=== PATIENT | female | born 1965 | race Caucasian/White ===

== ENCOUNTER 2017-05-15 23:55 | Emergency (ER) | payer OTHER ==
[2017-05-15 23:55] VITALS: BMI 25.2
[2017-05-16 00:09] VITALS: BP 165/91; PULSE 91; RESP 18; TEMP 98.6; O2SAT 99
[2017-05-16] MEDS ORDERED: Oxycodone/Acetaminophen 5/325 mg Tab PO STA (00:19)
--- NOTE | 2017-05-16 00:23 | ED PDOC ---
Arrival/HPI - General Chief Complaint: Upper Extremity Problem/Injury Time Seen by Provider: 05/16/17 00:15 Historian: Patient - History of Present Illness Narrative History of Present Illness (Text): 05/16/17 00:15 Vania Fernández is a 51 year old female, whose past medical history includes hypertension, who presents to the emergency department complaining of left shoulder pain, worsened with movement, for 1 days. Patient denies any recent trauma/injury and notes she sleeps resting on her left side. Patient also denies any chest pain, shortness of breath, nausea, vomiting, headache, dizziness, or any other complaints. Time/Duration: Other (1 day) Symptom Onset: Gradual Symptom Course: Unchanged Activities at Onset: Rest, Light Modifying Factors (Text): Worsened with movement. Context: Home Past Medical History - Provider Review Nursing Documentation Reviewed: Yes - Infectious Disease Hx of Infectious Diseases: None - Cardiac Hx Cardiac Disorders: Yes Hx Hypertension: Yes - Pulmonary Hx Respiratory Disorders: No - Neurological Hx Neurological Disorder: No - HEENT Hx HEENT Disorder: No - Renal Hx Renal Disorder: No - Endocrine/Metabolic Hx Endocrine Disorders: No - Hematological/Oncological Hx Blood Disorders: No - Integumentary Hx Dermatological Disorder: No - Musculoskeletal/Rheumatological Hx Musculoskeletal Disorders: No - Gastrointestinal Hx Gastrointestinal Disorders: No - Genitourinary/Gynecological Hx Genitourinary Disorders: No - Psychiatric Hx Psychophysiologic Disorder: No Hx Substance Use: No - Surgical History Hx Hysterectomy: Yes - Anesthesia Hx Anesthesia: Yes Hx Anesthesia Reactions: No Hx Malignant Hyperthermia: No Family/Social History - Physician Review Nursing Documentation Reviewed: Yes Family/Social History: Unknown Family HX Smoking Status: Never Smoked Hx Alcohol Use: No Hx Substance Use: No Allergies/Home Meds Allergies/Adverse Reactions: Allergies amoxicillin trihydrate [From Augmentin] Allergy (Verified 05/16/17 00:15) RASH potassium clavulanate [From Augmentin] Allergy (Verified 05/16/17 00:15) RASH Home Medications: Home Meds Medication Instructions Recorded Confirmed Losartan/Hydrochlorothiazide 25 - 100 mg PO DAILY 05/16/17 05/16/17 [Losartan-Hctz 100-25 mg Tab] Metoprolol Succinate [Toprol Xl] 25 mg PO DAILY 05/16/17 05/16/17 Review of Systems - Physician Review All systems were reviewed & negative as marked: Yes - Review of Systems Constitutional: Normal. absent: Fevers Eyes: Normal ENT: Normal Respiratory: Normal. absent: SOB, Cough Cardiovascular: Normal. absent: Chest Pain Gastrointestinal: Normal. absent: Abdominal Pain, Diarrhea, Nausea, Vomiting Genitourinary Female: Normal. absent: Dysuria, Frequency, Hematuria, Urine Output Changes Musculoskeletal: Arthralgias (+left shoulder pain). absent: Back Pain, Neck Pain Skin: Normal. absent: Rash Neurological: Normal. absent: Headache, Dizziness Endocrine: Normal Hemo/Lymphatic: Normal Psychiatric: Normal Physical Exam Vital Signs Reviewed: Yes Vital Signs Temp Pulse Resp BP Pulse Ox 05/16/17 00:08 98.6 F 91 H 18 165/91 H 99 Temperature: Afebrile Blood Pressure: Hypertensive Pulse: Regular Respiratory Rate: Normal Appearance: Positive for: Well-Appearing, Non-Toxic, Comfortable Pain Distress: None Mental Status: Positive for: Alert and Oriented X 3 - Systems Exam Head: Present: Atraumatic, Normocephalic Pupils: Present: PERRL Extroacular Muscles: Present: EOMI Conjunctiva: Present: Normal Mouth: Present: Moist Mucous Membranes Neck: Present: Normal Range of Motion Respiratory/Chest: Present: Clear to Auscultation, Good Air Exchange. No: Respiratory Distress, Accessory Muscle Use Cardiovascular: Present: Regular Rate and Rhythm, Normal S1, S2. No: Murmurs Abdomen: Present: Normal Bowel Sounds. No: Tenderness, Distention, Peritoneal Signs Back: Present: Normal Inspection Upper Extremity: Present: NORMAL PULSES, Tenderness (Tenderness on palpation of left anterior shoulder, pain with left shoulder abduction), Neurovascularly Intact, Capillary Refill < 2s. No: Cyanosis, Edema, Swelling, Erythema, Temperature Abnormalties, Deformity Lower Extremity: Present: Normal Inspection. No: Edema Neurological: Present: GCS=15, CN II-XII Intact, Speech Normal Skin: Present: Warm, Dry, Normal Color. No: Rashes Psychiatric: Present: Alert, Oriented x 3, Normal Insight, Normal Concentration Medical Decision Making ED Course and Treatment: 05/16/17 00:15 Impression: 51 year old female complaining of left shoulder pain, worsened with movement today. Plan: -- XR Left Shoulder -- Percocet -- Toradol -- Reassess and disposition Progress Notes: 05/16/17 02:15 Reviewed radiology, XR Left Shoulder shows no acute processes. 05/16/17 02:45 On reevaluation the patient feels better and is in no acute distress. I have discussed the results and plan with the patient, who expresses understanding. Patient given the opportunity to ask question, all questions were answered and there is agreement with the plan to discharge the patient home. Patient is stable for discharge. Patient was instructed to follow up with physician/clinic in 1-2 days or return if symptoms persist/worsen or new concerning symptoms arise. - RAD Interpretation Radiology Orders: 05/16/17 00:20 SHOULDER LEFT [RAD] Stat Street Inspector: ED Physician - Medication Orders Current Medication Orders: Discontinued Medications Ketorolac Tromethamine (Toradol) 60 mg IM ONCE ONE Stop: 05/16/17 00:20 Last Admin: 05/16/17 00:44 Dose: 60 mg Oxycodone/Acetaminophen (Percocet 5/325 Mg Tab) 1 tab PO STAT STA Stop: 05/16/17 00:20 Last Admin: 05/16/17 00:44 Dose: 1 tab - Scribe Statement The provider has reviewed the documentation as recorded by the Jyoti Gallego All medical record entries made by the Shondaibdeejay were at my direction and personally dictated by me. I have reviewed the chart and agree that the record accurately reflects my personal performance of the history, physical exam, medical decision making, and the department course for this patient. I have also personally directed, reviewed, and agree with the discharge instructions and disposition. Disposition/Present on Arrival - Present on Arrival Any Indicators Present on Arrival: No History of DVT/PE: No History of Uncontrolled Diabetes: No Urinary Catheter: No History of Decub. Ulcer: No History Surgical Site Infection Following: None - Disposition Have Diagnosis and Disposition been Completed?: Yes Diagnosis: Shoulder bursitis Disposition: HOME/ ROUTINE Disposition Time: 02:45 Patient Plan: Discharge Condition: STABLE Discharge Instructions (ExitCare): Shoulder Bursitis (ED) Additional Instructions: Take meds as prescribed/follow up with the orthopedist this week Prescriptions: oxyCODONE/Acetaminophen [Percocet 5/325 mg Tab] 1 ea PO Q6 PRN #16 tab PRN Reason: Pain, Moderate (4-7) Ketorolac Tromethamine [Toradol] 10 mg PO TID PRN #15 tab PRN Reason: Pain, Moderate (4-7) Referrals: Thais Nance MD [Staff Provider] - Follow up with primary Forms: [employer] (Kittitian)
--- NOTE | 2017-05-16 10:32 | RAD ---
PROCEDURE: Radiographs of the Left Shoulder HISTORY: pain COMPARISON: No prior. FINDINGS: BONES: Normal. No fracture. JOINTS: Normal. Glenohumeral and acromioclavicular joints preserved. No osteoarthritis. SOFT TISSUES: Normal. OTHER FINDINGS: None. IMPRESSION: Normal radiographs of the left shoulder.
== END 2017-05-16 02:54 | disposition home or self-care (01) ==
LOC: ED 23:55
DX: M75.52 Bursitis of left shoulder (principal); I10 Essential (primary) hypertension
CPT/HCPCS: 73030; 96372; 99281; J1885

== ENCOUNTER 2017-06-20 12:02 | Emergency (ER) | payer OTHER ==
[2017-06-20 12:16] VITALS: TEMP 98.6; BMI 45.7
--- NOTE | 2017-06-20 12:47 | ED PDOC ---
Arrival/HPI - General Historian: Patient <Terrance Meade - Last Filed: 06/20/17 17:31> <TraceJr Kelli - Last Filed: 06/20/17 17:57> - General Chief Complaint: Groin Pain Time Seen by Provider: 06/20/17 12:14 - History of Present Illness Narrative History of Present Illness (Text): 06/20/17 12:40 51 yo female with a past medical history of HTN and "some kind of heart arrhythmia". The patient is complaining of sharp groin pain b/l. The pain starts in her groin b/l and radiates through her thigh into her hips. The pain also radiates down the inner part of both thighs to the superior portion of medical aspect of her knees b/l. 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 The pain has gotten so bad that she is unable to walk. She is able to step forward with the left leg but has to drag the right leg due to the pain. She took a Flexeril 10mg and one Percocet table last night, which relieved the pain for approximately one hour but the pain quickly returned. She has never had this pain before. She states that she recognized a lump located in her left groin possibly 2-3 days ago. States that she was experiencing subjective fevers and chills yesterday. She was nauseous yesterday but is not currently nauseous. Denies any trauma to the area. Denies vomiting, diarrhea, constipation, sob, cp , lightheadedness, dizziness, numbness, tingling, vaginal discharge. PMH: HTN and "some kind of heart arrhythmia" PSH: Total hysterectomy (1998) Family: Mother - HTN, of lung cancer; Father - HTN Social: Never smoker, denies alcohol/illicit drug use Allergies: NKDA (Terrance Meade) Past Medical History - Provider Review Nursing Documentation Reviewed: Yes - Infectious Disease Hx of Infectious Diseases: None - Reproductive Menopause: No - Cardiac Hx Cardiac Disorders: Yes Hx Hypertension: Yes - Pulmonary Hx Respiratory Disorders: No - Neurological Hx Neurological Disorder: No - HEENT Hx HEENT Disorder: No - Renal Hx Renal Disorder: No - Endocrine/Metabolic Hx Endocrine Disorders: No - Hematological/Oncological Hx Blood Disorders: No - Integumentary Hx Dermatological Disorder: No - Musculoskeletal/Rheumatological Hx Musculoskeletal Disorders: No - Gastrointestinal Hx Gastrointestinal Disorders: No - Genitourinary/Gynecological Hx Genitourinary Disorders: No - Psychiatric Hx Psychophysiologic Disorder: No Hx Substance Use: No - Surgical History Hx Hysterectomy: Yes - Anesthesia Hx Anesthesia: Yes Hx Anesthesia Reactions: No Hx Malignant Hyperthermia: No <Terrance Meade - Last Filed: 06/20/17 17:31> Family/Social History - Physician Review Nursing Documentation Reviewed: Yes Family/Social History: No Known Family HX Smoking Status: Never Smoked Hx Alcohol Use: No Hx Substance Use: No <Terrance Meade - Last Filed: 06/20/17 17:31> Allergies/Home Meds <Terrance Meade - Last Filed: 06/20/17 17:31> <Jr Woodward - Last Filed: 06/20/17 17:57> Allergies/Adverse Reactions: Allergies amoxicillin trihydrate [From Augmentin] Allergy (Verified 05/16/17 00:15) RASH potassium clavulanate [From Augmentin] Allergy (Verified 05/16/17 00:15) RASH Home Medications: Home Meds Medication Instructions Recorded Confirmed Losartan/Hydrochlorothiazide 25 - 100 mg PO DAILY 05/16/17 06/20/17 [Losartan-Hctz 100-25 mg Tab] Metoprolol Succinate [Toprol Xl] 25 mg PO DAILY 05/16/17 06/20/17 Review of Systems - Review of Systems Constitutional: Fevers. absent: Fatigue, Weight Change Eyes: absent: Vision Changes Respiratory: absent: SOB, Cough Cardiovascular: absent: Chest Pain, Edema, Calf Pain Gastrointestinal: Nausea, Appetite Changes (eating less over that past day due to nausea). absent: Abdominal Pain, Stool Changes, Constipation, Diarrhea, Vomiting Genitourinary Female: Urine Output Changes (decreased urine output) Musculoskeletal: Other (groin pain radiating to hips b/l, right>left) Skin: Normal Neurological: Normal, Gait Changes (has to drag right leg due to pain). absent : Headache, Dizziness Endocrine: Normal Hemo/Lymphatic: Normal Psychiatric: Normal <Terrance Meade - Last Filed: 06/20/17 17:31> Physical Exam Vital Signs Reviewed: Yes Temperature: Afebrile Blood Pressure: Normal Pulse: Regular Respiratory Rate: Normal Appearance: Positive for: Well-Appearing, Non-Toxic, Comfortable Pain Distress: None Mental Status: Positive for: Alert and Oriented X 3 - Systems Exam Head: Present: Atraumatic, Normocephalic Extroacular Muscles: Present: EOMI Conjunctiva: Present: Normal Mouth: Present: Moist Mucous Membranes Nose (External): Present: Atraumatic. No: Abrasion Neck: Present: Normal Range of Motion Respiratory/Chest: Present: Clear to Auscultation. No: Respiratory Distress, Accessory Muscle Use Cardiovascular: Present: Normal S1, S2, Peripheal Pulses Present. No: Murmurs, Tachycardic Abdomen: Present: Normal Bowel Sounds. No: Tenderness, Distention, Peritoneal Signs, Rebound Genitourinary/Pelvic Exam: Present: Other (small lump located in left groin. tender to palpation.) Upper Extremity: Present: Normal Inspection, NORMAL PULSES. No: Edema, Tenderness, Swelling, Erythema Lower Extremity: Present: Normal Inspection, NORMAL PULSES. No: Edema, CALF TENDERNESS, Normal ROM (Extreme pain with passive abduction of the hip. Patient unwilling to actively move right leg due to pain. Left leg decreased ROM due to pain. Pain with abduction of hip. Right Hip pain> Left hip pain.) Neurological: Present: GCS=15 Skin: Present: Warm, Dry, Normal Color. 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 Low lipoma of the right sartorius muscle. Mild hepatomegaly. Small nonobstructing calculi in the lower pole left kidney. Slightly enlarged muscles may be responsible for palpable abnormality in left groin. - Elevated WBC at 13.6, remaining lab work unremarkable - UA - trace blood - otherwise unremarkable - no UTI (Terrance Meade) 06/20/17 In agreement with resident note, which includes further HPI details. Patient was seen and evaluated with resident, came up with plan and treatment together. 06/20/17 17:53 51 yo female presents to the ED c/o b/l groin pain right greater than left. r/o Musculoskeletal vs Hernia vs Mass vs UTI -- Labs -- UA -- CT -- Pain control Patient's labs reviewed. Mildly elevated WBC at 13. No urinary symptoms. No cough. UA negative. Lungs clear. Patient does not have any rash. CT reviewed and noted results in the chart. No hernia or septic joint or fluid collection or mass. Patient is able to walk but does have some pain to her groin. She will go home with her partner with Rx Naproxen and she has Flexeril already at home. She was advised to return to the ED if symptoms worsen or any other concern. ` ( Jr Woodward) - Lab Interpretations Lab Results: 06/20/17 13:28 06/20/17 13:28 Lab Results 06/20/17 16:26: Urine Color Yellow, Urine Appearance Clear, Urine pH 6.5, Ur Specific [place] <= 1.005, Urine Protein Negative, Urine Glucose (UA) Negative, Urine Ketones Negative, Urine Blood Trace-lysed H, Urine Nitrate Negative, Urine Bilirubin Negative, Urine Urobilinogen 0.2, Ur Leukocyte Esterase Negative , Urine RBC 0 - 2, Urine WBC Negative, Ur Epithelial Cells 3 - 4, Urine Bacteria Few 06/20/17 13:28: Sodium 140, Potassium 3.7, Chloride 106, Carbon Dioxide 25, Anion Gap 13, BUN 15, Creatinine 1.0, Est GFR ( Amer) > 60, Est GFR (Non- Af Amer) 58, Random Glucose 95, Calcium 8.9, Total Bilirubin 0.6, AST 26, ALT 33 , Alkaline Phosphatase 89, Total Protein 7.3, Albumin 3.7, Globulin 3.6, Albumin /Globulin Ratio 1.0 L 06/20/17 13:28: WBC 13.6 H, RBC 4.01, Hgb 10.8 L, Hct 32.8 L, MCV 81.8, MCH 26.9 , MCHC 32.9, RDW 13.6, Plt Count 339, MPV 8.7, Gran % 73.3 H, Lymph % (Auto) 16.7 L, [place] % (Auto) 8.6 H, Eos % (Auto) 1.3 L, Baso % (Auto) 0.1, Gran # 9.97 H, Lymph # 2.3, [place] # 1.2 H, Eos # 0.2, Baso # 0.02 - RAD Interpretation Radiology Orders: 06/20/17 12:56 ABDOMEN & PELVIS [ABD & PELVIS IV CONTRAST ONLY] [CT] Stat - Medication Orders Current Medication Orders: Discontinued Medications Cyclobenzaprine HCl (Flexeril) 10 mg PO STAT STA Stop: 06/20/17 13:00 Last Admin: 06/20/17 13:32 Dose: 10 mg Iohexol (Omnipaque 350 100 Ml) Confirm Administered Dose 350 mg .ROUTE .STK-MED ONE Stop: 06/20/17 14:02 Ketorolac Tromethamine (Toradol) 30 mg IVP STAT STA Stop: 06/20/17 13:00 Last Admin: 06/20/17 13:00 Dose: 30 mg Re-Assess: [facility] Pain Assessment Document 06/20/17 14:00 OCS (Rec: 06/20/17 16:24 OCS [facility] [id number]) Pain Reassessment Is this a pain reassessment? Yes Sleep Is patient sleeping during reassessment? Yes Oxycodone/Acetaminophen (Percocet 5/325 Mg Tab) 1 tab PO STAT STA Stop: 06/20/17 16:49 Last Admin: 06/20/17 17:03 Dose: 1 tab <Terrance Meade - Last Filed: 06/20/17 17:31> - PA / AUTOMOTIVE SERVICE CASHIER / Resident Statement / has reviewed & agrees with the documentation as recorded. / has examined the patient and agrees with the treatment plan. - Scribe Statement The provider has reviewed the documentation as recorded by the Scribe <Jr Woodward - Last Filed: 06/20/17 17:57> - Scribe Statement 06/20/2017 Kerry Montes Attestation: All medical record entries made by the Shondaibdeejay were at my direction and personally dictated by me. I have reviewed the chart and agree that the record accurately reflects my personal performance of the history, physical exam, medical decision making, and the department course for this patient. I have also personally directed, reviewed, and agree with the discharge instructions and disposition. (Jr Woodward) Disposition/Present on Arrival - Present on Arrival Any Indicators Present on Arrival: No History of DVT/PE: No History of Uncontrolled Diabetes: No Urinary Catheter: No History of Decub. Ulcer: No History Surgical Site Infection Following: None - Disposition Have Diagnosis and Disposition been Completed?: Yes Disposition Time: 17:15 Patient Plan: Discharge <Terrance Meade - Last Filed: 06/20/17 17:31> <Jr Woodward - Last Filed: 06/20/17 17:57> - Disposition Diagnosis: Inguinal muscle strain Disposition: HOME/ ROUTINE Condition: GOOD Discharge Instructions (ExitCare): Groin Strain (ED) Prescriptions: Naproxen 500 mg PO BID #28 tab Referrals: PCP,NO [Primary Care Provider] - Follow up with primary Forms: [email or web address] (Amharic), WORK NOTE
[2017-06-20 13:41] LABS: BASO # 0.02 K/mm3 (0.0-2.0); BASO % 0.1 % (0.0-3.0); EOS # 0.2 (0.0-0.7); EOS % 1.3 % (1.5-5.0); GRAN # 9.97 (1.4-6.5); GRAN % 73.3 % (50.0-68.0); HEMATOCRIT 32.8 % (36.0-48.0); LYMPH # 2.3 (1.2-3.4); LYMPH % 16.7 % (22.0-35.0); MEAN CELL VOLUME 81.8 fl (80.0-105.0); MEAN CORPUSCULAR HEMOGLOBIN 26.9 pg (25.0-35.0); MEAN CORPUSCULAR HGB CONC 32.9 g/dl (31.0-37.0); MEAN PLATELET VOLUME 8.7 fl (7.0-11.0); MONO # 1.2 (0.1-0.6); MONO % 8.6 % (1.0-6.0); RED CELL DISTRIBUTION WIDTH 13.6 % (11.5-14.5); WHITE BLOOD COUNT 13.6 10^3/ul (4.5-11.0)
[2017-06-20 13:52] LABS: ALKALINE PHOSPHATASE 89 U/L (38-133); ALT/SGPT 33 U/L (7-56); AST/SGOT 26 U/L (15-39); BILIRUBIN,TOTAL 0.6 mg/dL (0.2-1.3); BLOOD UREA NITROGEN 15 mg/dL (7-21); CALCIUM 8.9 mg/dL (8.4-10.5); CARBON DIOXIDE 25 mmol/L (21-33); CHLORIDE 106 mmol/L (98-107); GFR AFRICAN-AMERICAN > 60; GLUCOSE,RANDOM 95 mg/dL (70-110); POTASSIUM 3.7 mmol/L (3.6-5.0); SODIUM 140 mmol/L (132-148); TOTAL PROTEIN 7.3 g/dL (5.8-8.3)
[2017-06-20] MEDS ORDERED: Iohexol 350 MG/100 ML VIAL ONE (14:01)
--- NOTE | 2017-06-20 15:12 | CT ---
PROCEDURE: CT Abdomen and Pelvis with contrast HISTORY: b/l groin pain, possible left groin mass COMPARISON: None. TECHNIQUE: Contrast dose: 100 mL Omnipaque 350 Radiation dose: Total exam DLP = 1308.69 mGy-cm. This CT exam was performed using one or more of the following dose reduction techniques: Automated exposure control, adjustment of the mA and/or kV according to patient size, and/or use of iterative reconstruction technique. FINDINGS: LOWER THORAX: Unremarkable. LIVER: Mild hepatomegaly. Smooth contour. No mass. No biliary dilatation. GALLBLADDER AND BILE DUCTS: Unremarkable. PANCREAS: Unremarkable. No gross lesion or ductal dilatation. SPLEEN: Unremarkable. ADRENALS: Unremarkable. No mass. KIDNEYS AND URETERS: 3-4 very small nonobstructing calculi in the lower pole of the left kidney. No right renal calculus. No renal mass or hydronephrosis. VASCULATURE: Unremarkable. No aortic aneurysm. BOWEL: Sigmoid diverticulosis. Scattered colonic diverticulae. No evidence of diverticulitis. No bowel obstruction. APPENDIX: Normal appendix. PERITONEUM: Unremarkable. No free fluid. No free air. LYMPH NODES: Unremarkable. No enlarged lymph nodes. BLADDER: Unremarkable. REPRODUCTIVE: Status post hysterectomy. There is a curvilinear tubular fluid collection in the left pelvis of uncertain etiology. This may represent a hydrosalpinx. It is not known whether the patient underwent DUDLEY -BSO or merely hysterectomy. Alternatively, this could represent a postoperative fluid collection. Please correlate. BONES: No acute fracture. OTHER FINDINGS: No inguinal mass identified. There is a small lipoma of the right sartorius muscle. This slightly enlarges the muscle and may be responsible for a palpable abnormality. This is best seen on series 2, image 151 through 168. IMPRESSION: No inguinal mass identified. Low lipoma of the right sartorius muscle. Mild hepatomegaly. Small nonobstructing calculi in the lower pole left kidney. Additional minor findings as above
[2017-06-20 15:29] VITALS: RESP 18
[2017-06-20 16:46] LABS: PH,URINE 6.5 (4.7-8.0); URINE BILIRUBIN NEGATIVE (NEGATIVE); URINE BLOOD TRACE-LYSED (NEGATIVE); URINE GLUCOSE (UA) NEGATIVE (NEGATIVE); URINE KETONE NEGATIVE (NEGATIVE); URINE LEUKOCYTE ESTERASE NEGATIVE Leu/uL (NEGATIVE); URINE PROTEIN NEGATIVE mg/dL (<30 mg/dL); URINE UROBILINOGEN 0.2 E.U./dL (<1 E.U./dL)
[2017-06-20 16:47] LABS: URINE APPEARANCE CLEAR (CLEAR); URINE COLOR YELLOW (YELLOW)
[2017-06-20] MEDS ORDERED: Oxycodone/Acetaminophen 5/325 mg Tab PO STA (16:48)
[2017-06-20 16:57] LABS: URINE BACTERIA FEW (NEG); URINE RBC 0 - 2 /hpf (0-2); URINE WBC NEGATIVE /hpf (0-6)
[2017-06-20 17:39] VITALS: BP 129/71; PULSE 71; O2SAT 99
== END 2017-06-20 17:41 | disposition home or self-care (01) ==
LOC: ED 12:02
DX: S39.011A Strain of muscle, fascia and tendon of abdomen, initial encounter (principal); X58.XXXA Exposure to other specified factors, initial encounter; Y93.89 Activity, other specified; Y92.233 Cafeteria of hospital as the place of occurrence of the external cause; Y99.8 Other external cause status
CPT/HCPCS: 74177; 80053; 81001; 85025; 87086; 96374; 99282; J1885; Q9967

== ENCOUNTER 2017-10-07 13:10 | Inpatient (IN) | payer OTHER ==
[2017-10-07] MEDS ORDERED: Albuterol-Ipratrop 3 mg / 0.5 (3 ml) UD IH STA ×3 (13:12→13:53)
--- NOTE | 2017-10-07 13:19 | ED PDOC ---
Arrival/HPI - General Chief Complaint: Shortness Of Breath Time Seen by Provider: 10/07/17 13:11 Historian: Patient - History of Present Illness Narrative History of Present Illness (Text): 10/07/17 13:15 51 year old female, whose medical history includes asthma, presents to the Emergency department due to rapid response as patient experienced shortness of breath. Patient reports a history of asthma that worsened today by repeated episodes of coughing; patient states she could not catch her breath. She reports that she has had a uri x 1 week, which worsened 2 days ago coughing productive cough with yellow sputum. She reports that any kind of uri triggers her asthma. Patient denies any fever, chills, chest pain, nausea, vomiting, diarrhea, back pain, neck pain, headache, dizziness, trauma/injury, or any other complaints. 10/07/17 13:38 Time/Duration: Prior to Arrival Symptom Onset: Gradual Symptom Course: Unchanged Context: Home Past Medical History - Provider Review Nursing Documentation Reviewed: Yes - Infectious Disease Hx of Infectious Diseases: None - Cardiac Hx Cardiac Disorders: Yes Hx Hypertension: Yes - Pulmonary Hx Respiratory Disorders: No - Neurological Hx Neurological Disorder: No - HEENT Hx HEENT Disorder: No - Renal Hx Renal Disorder: No - Endocrine/Metabolic Hx Endocrine Disorders: No - Hematological/Oncological Hx Blood Disorders: No - Integumentary Hx Dermatological Disorder: No - Musculoskeletal/Rheumatological Hx Musculoskeletal Disorders: No - Gastrointestinal Hx Gastrointestinal Disorders: No - Genitourinary/Gynecological Hx Genitourinary Disorders: No - Psychiatric Hx Psychophysiologic Disorder: No Hx Substance Use: No - Surgical History Hx Hysterectomy: Yes - Anesthesia Hx Anesthesia: Yes Hx Anesthesia Reactions: No Hx Malignant Hyperthermia: No Family/Social History - Physician Review Nursing Documentation Reviewed: Yes Family/Social History: Unknown Family HX Smoking Status: Never Smoked Hx Alcohol Use: No Hx Substance Use: No Allergies/Home Meds Allergies/Adverse Reactions: Allergies amoxicillin trihydrate [From Augmentin] Allergy (Verified 10/07/17 13:17) RASH potassium clavulanate [From Augmentin] Allergy (Verified 10/07/17 13:17) RASH Home Medications: Home Meds Medication Instructions Recorded Confirmed Unobtainable 10/07/17 10/07/17 Review of Systems - Physician Review All systems were reviewed & negative as marked: Yes - Review of Systems Constitutional: absent: Fevers, Night Sweats Respiratory: SOB, Cough, Sputum Cardiovascular: absent: Chest Pain Gastrointestinal: absent: Diarrhea, Nausea, Vomiting Musculoskeletal: absent: Back Pain, Neck Pain Neurological: absent: Headache, Dizziness Physical Exam Vital Signs Reviewed: Yes Vital Signs Temp Pulse Resp BP Pulse Ox 10/07/17 14:05 98.1 F 10/07/17 13:18 22 98 10/07/17 13:10 81 22 159/87 H 100 Temperature: Afebrile Blood Pressure: Hypertensive Pulse: Regular Respiratory Rate: Normal Appearance: Positive for: Non-Toxic, Other (unable to speak in complete sentences) Pain Distress: None Mental Status: Positive for: Alert and Oriented X 3 - Systems Exam Head: Present: Atraumatic, Normocephalic Pupils: Present: PERRL Extroacular Muscles: Present: EOMI Conjunctiva: Present: Normal Mouth: Present: Moist Mucous Membranes Neck: Present: Normal Range of Motion Respiratory/Chest: Present: Respiratory Distress, Accessory Muscle Use, Wheezes (bilaterally), Tachypneic Cardiovascular: Present: Regular Rate and Rhythm, Normal S1, S2. No: Murmurs Abdomen: Present: Normal Bowel Sounds. No: Tenderness, Distention, Peritoneal Signs Back: Present: Normal Inspection Upper Extremity: Present: Normal Inspection. No: Cyanosis, Edema Lower Extremity: Present: Normal Inspection. No: Edema Neurological: Present: GCS=15, CN II-XII Intact, Speech Normal Skin: Present: Warm, Dry, Normal Color. No: Rashes Psychiatric: Present: Alert, Oriented x 3, Normal Insight, Normal Concentration Medical Decision Making ED Course and Treatment: 10/07/17 13:23 Impression: 50 year old female with a history of asthma presents to the Emergency department complaining of worsened asthma today. Plan: -- Labs -- Chest xray -- Albuterol -- Solumedrol -- Reassess and disposition Progress Notes: Procedure: Chest xray Report Date : 10/07/2017 13:43:45 Dictator : Shelly Ramírez MD IMPRESSION: Patchy opacity at the lateral lung base appears to reflect artifact due to confluence of shadows. Developing infiltrate is not excluded. Cardiomegaly. 10/07/17 14:35 After 3 duonebs and steroids patient is able to speak in complete sentences but continues to have wheezing b/l with tachypnea. Cxray concerning for developing pna and started on treatment for cap. - Lab Interpretations Lab Results: 10/07/17 13:20 10/07/17 13:20 Lab Results 10/07/17 13:20: Sodium 146, Potassium 4.0, Chloride 107, Carbon Dioxide 25, Anion Gap 18, BUN 16, Creatinine 0.8, Est GFR ( Amer) > 60, Est GFR (Non- Af Amer) > 60, Random Glucose 105, Calcium 9.8, Total Bilirubin 0.5, AST 37 H, ALT 45, Alkaline Phosphatase 101, Total Creatine Kinase 178, Troponin I < 0.01, Total Protein 8.2, Albumin 4.3, Globulin 3.8, Albumin/Globulin Ratio 1.1 10/07/17 13:20: WBC 10.3 D, RBC 4.95, Hgb 13.0 D, Hct 40.2, MCV 81.2, MCH 26.3 , MCHC 32.3, RDW 14.5, Plt Count 307, MPV 9.5, Gran % 65.6, Lymph % (Auto) 24.5 , [place] % (Auto) 7.2 H, Eos % (Auto) 2.3, Baso % (Auto) 0.4, Gran # 6.72 H, Lymph # 2.5, [place] # 0.7 H, Eos # 0.2, Baso # 0.04 - RAD Interpretation Radiology Orders: 10/07/17 13:12 CHEST PORTABLE [RAD] Stat - Medication Orders Current Medication Orders: Ceftriaxone Sodium (Rocephin 1 Gram Ivpb (D5w)) 1 gm in 100 mls @ 200 mls/hr IVPB STAT [facility] PRN Reason: Protocol Last Admin: 10/07/17 14:19 Dose: 200 mls/hr eMAR Start Stop Document 10/07/17 14:19 SF (Rec: 10/07/17 14:19 [id number]) Intravenous Solution Start Date 10/07/17 Start Time 14:19 End Date 10/07/17 End time 14:49 Total Infusion Time 30 Azithromycin (Zithromax 500mg In Ns) 500 mg in 250 mls @ 167 mls/hr IVPB STAT STA PRN Reason: Protocol Stop: 10/07/17 15:37 Discontinued Medications Albuterol/Ipratropium (Duoneb 3 Mg/0.5 Mg (3 Ml) Ud) 3 ml IH STAT STA Stop: 10/07/17 13:13 Last Admin: 10/07/17 13:22 Dose: 3 ml Albuterol/Ipratropium (Duoneb 3 Mg/0.5 Mg (3 Ml) Ud) 3 ml IH STAT STA Stop: 10/07/17 13:13 Last Admin: 10/07/17 13:22 Dose: 3 ml Albuterol/Ipratropium (Duoneb 3 Mg/0.5 Mg (3 Ml) Ud) 3 ml IH STAT STA Stop: 10/07/17 13:54 Last Admin: 10/07/17 14:19 Dose: 3 ml Methylprednisolone (Solu-Medrol) 125 mg IVP STAT STA Stop: 10/07/17 13:13 Last Admin: 10/07/17 13:22 Dose: 125 mg IVP Administration Document 10/07/17 13:22 SF (Rec: 10/07/17 13:22 [id number]) Charges for Administration # of IVP Administrations 1 - Scribe Statement The provider has reviewed the documentation as recorded by the Scribe Joe Carbajal All medical record entries made by the Scribe were at my direction and personally dictated by me. I have reviewed the chart and agree that the record accurately reflects my personal performance of the history, physical exam, medical decision making, and the department course for this patient. I have also personally directed, reviewed, and agree with the discharge instructions and disposition. Disposition/Present on Arrival - Present on Arrival Any Indicators Present on Arrival: No History of DVT/PE: No History of Uncontrolled Diabetes: No Urinary Catheter: No History Surgical Site Infection Following: None - Disposition Have Diagnosis and Disposition been Completed?: Yes Diagnosis: Asthma exacerbation Disposition: HOSPITALIZED Disposition Time: 14:36 Patient Plan: Observation Condition: FAIR
--- NOTE | 2017-10-07 13:45 | RAD ---
HISTORY: shortness of breath COMPARISON: None available. TECHNIQUE: Chest, one view. FINDINGS: Examination limited by habitus, hypoinflation, and patient obliquity. LUNGS: Patchy opacity at the lateral lung base appears to reflect artifact due to confluence of shadows. Developing infiltrate is not excluded. Please note that chest x-ray has limited sensitivity for the detection of pulmonary masses. PLEURA: No significant pleural effusion identified. No definite pneumothorax . CARDIOVASCULAR: Cardiomegaly. OSSEOUS STRUCTURES: Degenerative changes. VISUALIZED UPPER ABDOMEN: Unremarkable. OTHER FINDINGS: None. IMPRESSION: Patchy opacity at the lateral lung base appears to reflect artifact due to confluence of shadows. Developing infiltrate is not excluded. Cardiomegaly.
[2017-10-07 13:46] LABS: BASO # 0.04 K/mm3 (0.0-2.0); BASO % 0.4 % (0.0-3.0); EOS # 0.2 (0.0-0.7); EOS % 2.3 % (1.5-5.0); GRAN # 6.72 (1.4-6.5); GRAN % 65.6 % (50.0-68.0); HEMATOCRIT 40.2 % (36.0-48.0); LYMPH # 2.5 (1.2-3.4); LYMPH % 24.5 % (22.0-35.0); MEAN CELL VOLUME 81.2 fl (80.0-105.0); MEAN CORPUSCULAR HEMOGLOBIN 26.3 pg (25.0-35.0); MEAN CORPUSCULAR HGB CONC 32.3 g/dl (31.0-37.0); MEAN PLATELET VOLUME 9.5 fl (7.0-11.0); MONO # 0.7 (0.1-0.6); MONO % 7.2 % (1.0-6.0); RED CELL DISTRIBUTION WIDTH 14.5 % (11.5-14.5); WHITE BLOOD COUNT 10.3 10^3/ul (4.5-11.0)
[2017-10-07 13:56] LABS: ALB/GLOB RATIO 1.1 (1.1-1.8); ALKALINE PHOSPHATASE 101 U/L (38-126); ALT/SGPT 45 U/L (7-56); AST/SGOT 37 U/L (14-36); BILIRUBIN,TOTAL 0.5 mg/dL (0.2-1.3); BLOOD UREA NITROGEN 16 mg/dL (7-21); CALCIUM 9.8 mg/dL (8.4-10.5); CARBON DIOXIDE 25 mmol/L (21-33); CHLORIDE 107 mmol/L (98-107); GFR AFRICAN-AMERICAN > 60; GLUCOSE,RANDOM 105 mg/dL (70-110); SODIUM 146 mmol/L (132-148); TOTAL PROTEIN 8.2 g/dL (5.8-8.3)
[2017-10-07] MEDS ORDERED: Azithromycin 500MG/NS 250ml 500 MG/250 ML BAG IVPB STA (14:08)
[2017-10-07 14:09] LABS: TROPONIN I < 0.01 ng/mL
[2017-10-07] MEDS ORDERED: cefTRIAXone 1 gm 1 GM/100 ML BAG IVPB SCH (14:15)
[2017-10-07] MEDS ORDERED: Albuterol-Ipratrop 3 mg / 0.5 (3 ml) UD IH PRN (15:24)
--- NOTE | 2017-10-07 16:25 | CP.PCM.HP ---
<Andie Jordan - Last Filed: 10/07/17 16:22> History of Present Illness - History of Present Illness History of Present Illness: PGY-2 h&p for Hospitalist service 51 year old female with medical history of asthma, HTN, enlarged heart, arrhythmia, bursitis of the shoulder presents to the Emergency department due to rapid response as patient experienced shortness of breath. Patient states that 2 weeks ago she developed an upper respiratory infection and had nasal congestion. The URI progressed and she developed a productive cough with yellow sputum. Patient states that for the past 2 days she has increased sob and had to use her albuterol inhaler up to 4 times per day. Patient states that when she coughs she has difficulty catching her breath. She states that this afternoon she began to have repeat episodes of cough and could not catch her breath. An MUD GRINDER was called for the incident, she was given ventolin inhaler which somewhat helped patient was then escorted to ED. Patient reports a history of asthma that is exacerbated with respiratory tract infections. Patient reports fevers when she first developed her symptoms but no recently. She states she took over th counter Advil d with improvement of her nasal congestion but not her cough or sob. She denies any chest pain, nausea, vomiting , diarrhea, back pain, neck pain, headache, dizziness, trauma/injury, or any other complaints. PMH: asthma, HTN, enlarged heart, arrhythmia, bursitis of the shoulder, neuropathy PSH: hysterectomy, knee surgery social history: denies smoking or illicit drug use, social alcohol use family history: mother- lung ca, heart disease with MS and cva allergy: amoxicillin, clavulanate home meds: losherve-Htcz, lopressor PMD: Dr. Martin Pharm: insurance: [facility] Present on Admission - Present on Admission Any Indicators Present on Admission: No Review of Systems - Constitutional Constitutional: absent: Fatigue, Fever, Headache, Weakness - EENT Eyes: absent: Blurred Vision, Change in Vision Nose/Mouth/Throat: Nasal Congestion - Cardiovascular Cardiovascular: Dyspnea. absent: Chest Pain, Diaphoresis, Irregular Heart Rhythm - Respiratory Respiratory: Cough, Dyspnea, Wheezing. absent: Hemoptysis - Gastrointestinal Gastrointestinal: absent: Abdominal Pain, Constipation, Diarrhea, Nausea, Vomiting - Genitourinary Genitourinary: absent: Difficulty Urinating, Dysuria - Musculoskeletal Musculoskeletal: Numbness, Tingling. absent: Muscle Weakness, Myalgias - Integumentary Integumentary: absent: Rash, Skin Pain, Skin Ulcer, Sores, Wounds - Hematologic/Lymphatic Hematologic: absent: Easy Bleeding, Easy Bruising Past Patient History - Infectious Disease Hx of Infectious Diseases: None - Past Social History Smoking Status: Never Smoked - CARDIAC Hx Cardiac Disorders: Yes Hx Hypertension: Yes - PULMONARY Hx Respiratory Disorders: No - NEUROLOGICAL Hx Neurological Disorder: No - HEENT Hx HEENT Problems: No - RENAL Hx Chronic Kidney Disease: No - ENDOCRINE/METABOLIC Hx Endocrine Disorders: No - HEMATOLOGICAL/ONCOLOGICAL Hx Blood Disorders: No - INTEGUMENTARY Hx Dermatological Problems: No - MUSCULOSKELETAL/RHEUMATOLOGICAL Hx Musculoskeletal Disorders: No - GASTROINTESTINAL Hx Gastrointestinal Disorders: No - GENITOURINARY/GYNECOLOGICAL Hx Genitourinary Disorders: No - PSYCHIATRIC Hx Psychophysiologic Disorder: No Hx Substance Use: No - SURGICAL HISTORY Hx Hysterectomy: Yes - ANESTHESIA Hx Anesthesia: Yes Hx Anesthesia Reactions: No Hx Malignant Hyperthermia: No Meds Allergies/Adverse Reactions: Allergies Allergy/AdvReac Type Severity Reaction Status Date / Time amoxicillin trihydrate Allergy RASH Verified 10/07/17 13:17 [From Augmentin] potassium clavulanate Allergy RASH Verified 10/07/17 13:17 [From Augmentin] Physical Exam - Head Exam Head Exam: ATRAUMATIC, NORMAL INSPECTION, NORMOCEPHALIC - Eye Exam Eye Exam: EOMI, Normal appearance - ENT Exam ENT Exam: Mucous Membranes Moist - Respiratory Exam Respiratory Exam: Rhonchi, Wheezes Additional comments: short of breath, difficultly speaking in full sentences - Cardiovascular Exam Cardiovascular Exam: REGULAR RHYTHM, +S1, +S2. absent: Tachycardia, Diastolic murmur, Systolic Murmur - GI/Abdominal Exam GI & Abdominal Exam: Normal Bowel Sounds. absent: Distended, Firm - Extremities Exam Extremities exam: Positive for: normal inspection. Negative for: pedal edema, tenderness - Neurological Exam Neurological exam: Alert, CN II-XII Intact, Oriented x3, Reflexes Normal - Skin Skin Exam: Dry, Intact, Normal Color, Warm Results - Vital Signs Recent Vital Signs: Last Vital Signs Temp 98.1 F 10/07/17 14:05 Pulse 81 10/07/17 13:10 Resp 22 10/07/17 13:18 BP 159/87 H 10/07/17 13:10 Pulse Ox 98 10/07/17 13:18 - Labs Result Diagrams: 10/07/17 13:20 10/07/17 13:20 Assessment & Plan - Assessment and Plan (Free Text) Assessment: 51 year old female with medical history of asthma, HTN, enlarged heart, arrhythmia, bursitis of the shoulder presents to the Emergency department due to rapid response as patient experienced shortness of breath with productive cough Plan: 1. asthma exacerbation - due to poss pne vs uri - duoneb q6 sandhya, q2 prn - solu- medrol 125mg given in ED, continue 40 mg q12 - o2 prn 2. possible PNE - cxr showed a patchy opacity possible artifact vs infiltrate - will treat for pne, continue ceftriaxone and azithromycin - procal - blood cultures pending 3. HTN - controlled - continue lorsartan- hctz - will hold metoprolol for asthma exacebation, if increased heart rate, restart - continue to monitor GI ppx- protonix DVT ppx- heparin <Marni Noel - Last Filed: 10/07/17 16:52> Results - Vital Signs Recent Vital Signs: Last Vital Signs Temp 98.1 F 10/07/17 14:05 Pulse 81 10/07/17 13:10 Resp 22 10/07/17 13:18 BP 159/87 H 10/07/17 13:10 Pulse Ox 98 10/07/17 13:18 - Labs Result Diagrams: 10/07/17 13:20 10/07/17 13:20 Attending/Attestation - Attestation I have personally seen and examined this patient.: Yes I have fully participated in the care of the patient.: Yes I have reviewed all pertinent clinical information: Yes Notes (Text): 10/07/17 16:50 51 year old female with past medical history of hypertension and asthma who presents with shortness of breath secondary to asthma exacerbation on possibly pneumonia as seen on chest xray. Continue with iv steroids, antibiotics adnd duonebs. Continue with home medications for hypertension, except for metoprolol which will held for now. Marni Noel MD Hospitalist.
--- NOTE | 2017-10-07 16:39 | PCM.RRT ---
CASH MANAGEMENT COORDINATOR Nurse Assessment - Situation Date: 10/07/17 Time CASH MANAGEMENT COORDINATOR was called: 13:06 CASH MANAGEMENT COORDINATOR Location:: kitchen CASH MANAGEMENT COORDINATOR Reason for Call: Respiratory Distress CASH MANAGEMENT COORDINATOR Called By: Other Disciplines - IV IV Inserted during CASH MANAGEMENT COORDINATOR?: No - Diagnostic Test Ordered EKG: No Chest X-Ray: No CT Scan: No CPR started during CASH MANAGEMENT COORDINATOR?: No - Deondre Coma Scale Coma Scale Eye Opening: Spontaneous Coma Scale Motor: Obeys Commands Movement Coma Scale Verbal: Oriented I.Reason for CASH MANAGEMENT COORDINATOR - A) Acute Change in Patient: Subjective: CASH MANAGEMENT COORDINATOR called when patient became acutely sob while working in the kitchen - Neurological Status (Select all that apply): Alert, Responsive, Oriented, Verbal, Follows Commands - Head Head Exam: ATRAUMATIC, NORMAL INSPECTION, NORMOCEPHALIC - Eyes Eye Exam: Normal appearance - Respiratory Exam Respiratory Exam: Rhonchi, Wheezes, Respiratory Distress - Cardiovascular Exam Cardiovascular Exam: REGULAR RHYTHM, +S1, +S2. absent: Tachycardia, Murmur - GI/Abdominal Exam GI & Abdominal Exam: Soft, Normal Bowel Sounds. absent: Distended, Guarding, Tenderness - Neurological Exam Neurological Exam: Alert, Awake, Oriented x3 - Extremities Exam Extremities Exam: Normal Inspection Plan - Assessment of Findings&Treatment Plan 51 year old female with medical history of asthma, HTN, enlarged heart, arrhythmia, bursitis of the shoulder presents to the Emergency department due to rapid response as patient experienced shortness of breath. CASH MANAGEMENT COORDINATOR was called when patient states that she became acutely sob after having multiple episodes of coughing and was unable to catch her breath. Patient was given ventolin inhaler by coworker and promptly escorted to emergency room via wheelchair accompanied by nurse and medical residents. Patient was immediately endorsed to ED physician. Further treatment per ED.
[2017-10-07] MEDS: Albuterol-Ipratrop 3 mg / 0.5 (3 ml) UD IH SCH (19:37)
[2017-10-07 19:51] VITALS: BMI 35.5
[2017-10-07] MEDS ORDERED: Influenza Vaccine 60 mcg/0.5 mL SYR (4YR UP) IM ONE (19:52)
[2017-10-07] MEDS ORDERED: Pneumococcal 23-Valent Vaccine IM ONE (19:52)
[2017-10-07] MEDS: MethylPREDNISolone 40 mg Vial IVP SCH (22:18)
[2017-10-08] MEDS: Albuterol-Ipratrop 3 mg / 0.5 (3 ml) UD IH SCH ×4 (01:11→20:46)
[2017-10-08 06:23] LABS: BASO # 0.01 K/mm3 (0.0-2.0); BASO % 0.1 % (0.0-3.0); GRAN # 10.02 (1.4-6.5); GRAN % 89.6 % (50.0-68.0); HEMATOCRIT 37.4 % (36.0-48.0); LYMPH # 0.9 (1.2-3.4); MEAN CELL VOLUME 79.9 fl (80.0-105.0); MEAN CORPUSCULAR HEMOGLOBIN 25.6 pg (25.0-35.0); MEAN CORPUSCULAR HGB CONC 32.1 g/dl (31.0-37.0); MEAN PLATELET VOLUME 9.5 fl (7.0-11.0); MONO # 0.3 (0.1-0.6); MONO % 2.3 % (1.0-6.0); RED CELL DISTRIBUTION WIDTH 14.8 % (11.5-14.5); WHITE BLOOD COUNT 11.2 10^3/ul (4.5-11.0)
[2017-10-08 07:07] LABS: ALB/GLOB RATIO 1.1 (1.1-1.8); ALKALINE PHOSPHATASE 88 U/L (38-126); ALT/SGPT 31 U/L (7-56); AST/SGOT 40 U/L (14-36); BILIRUBIN,TOTAL 0.3 mg/dL (0.2-1.3); BLOOD UREA NITROGEN 14 mg/dL (7-21); CALCIUM 9.8 mg/dL (8.4-10.5); CARBON DIOXIDE 22 mmol/L (21-33); CHLORIDE 106 mmol/L (98-107); GFR AFRICAN-AMERICAN > 60; GLUCOSE,RANDOM 166 mg/dL (70-110); POTASSIUM 3.8 mmol/L (3.6-5.0); SODIUM 140 mmol/L (132-148); TOTAL PROTEIN 7.7 g/dL (5.8-8.3)
[2017-10-08] MEDS: Pantoprazole 40 mg EC Tab PO SCH (09:39)
[2017-10-08] MEDS: MethylPREDNISolone 40 mg Vial IVP SCH ×2 (09:39→21:24)
[2017-10-08] MEDS: cefTRIAXone 1 gm 1 GM/100 ML BAG IVPB SCH (09:42)
[2017-10-08] MEDS: Azithromycin 500MG/NS 250ml 500 MG/250 ML BAG IVPB SCH (09:42)
[2017-10-08] MEDS ORDERED: Non Formulary Medication (Losartan/Hydrochlorothiazide [Losartan-Hctz 100-25 Mg Tab] 1 EAC PO SCH (10:00)
--- NOTE | 2017-10-08 16:12 | CP.PCM.PN ---
<Susan Chicas - Last Filed: 10/08/17 16:07> Subjective - Date & Time of Evaluation Date of Evaluation: 10/08/17 Time of Evaluation: 08:08 - Subjective Subjective: Patient has been seen and examined. No overnight events reported. Patient states her breathing has improved but she still feels slightly short of breath. Her cough has also improved. She denies any fevers, chills, chest pain, abdominal pain, changes in bowel habits, or urinary symptoms. Objective - Vital Signs/Intake and Output Vital Signs (last 24 hours): Temp Pulse Resp BP Pulse Ox 98.0 F 108 H 20 137/76 96 10/08/17 09:38 10/08/17 10:00 10/08/17 08:42 10/08/17 08:42 10/08/17 08:42 Intake and Output: 10/08/17 10/08/17 06:59 18:59 Intake Total 540 480 Balance 540 480 - Medications Medications: Current Medications Acetaminophen (Tylenol 325mg Tab) 650 mg PO Q6H PRN PRN Reason: Pain or Fever Albuterol/Ipratropium (Duoneb 3 Mg/0.5 Mg (3 Ml) Ud) 3 ml IH Q2H PRN PRN Reason: Shortness of Breath Albuterol/Ipratropium (Duoneb 3 Mg/0.5 Mg (3 Ml) Ud) 3 ml IH [id number] [facility] Last Admin: 10/08/17 13:48 Dose: 3 ml Guaifenesin (Robitussin) 200 mg PO Q4H PRN PRN Reason: Cough and congestion Heparin Sodium (Porcine) (Heparin) 5,000 units SC Q12 [facility] PRN Reason: Protocol Last Admin: 10/08/17 09:39 Dose: 5,000 units Hydrochlorothiazide (Hydrodiuril) 25 mg PO DAILY [facility] Last Admin: 10/08/17 09:39 Dose: 25 mg Ceftriaxone Sodium (Rocephin 1 Gram Ivpb (D5w)) 1 gm in 100 mls @ 100 mls/hr IVPB DAILY [facility] PRN Reason: Protocol Last Admin: 10/08/17 09:42 Dose: 100 mls/hr Azithromycin (Zithromax 500mg In Ns) 500 mg in 250 mls @ 167 mls/hr IVPB DAILY [facility] PRN Reason: Protocol Last Admin: 10/08/17 09:42 Dose: 167 mls/hr Losartan Potassium (Cozaar) 100 mg PO DAILY [facility] Last Admin: 10/08/17 09:39 Dose: 100 mg Methylprednisolone (Solu-Medrol) 30 mg IVP Q12 [facility] Pantoprazole Sodium (Protonix Ec Tab) 40 mg PO DAILY [facility] Last Admin: 10/08/17 09:39 Dose: 40 mg - Labs Labs: 10/08/17 05:30 10/08/17 05:30 - Constitutional Appears: No Acute Distress - Head Exam Head Exam: ATRAUMATIC, NORMAL INSPECTION, NORMOCEPHALIC - Eye Exam Eye Exam: Normal appearance - ENT Exam ENT Exam: Mucous Membranes Moist - Respiratory Exam Respiratory Exam: Wheezes (Expiratory, B/L, Diffuse). absent: Clear to Ausculation Bilateral, Rales, Rhonchi Additional comments: Slight Conversational dyspnea - Cardiovascular Exam Cardiovascular Exam: Irregular Rhythm, +S1, +S2. absent: JVD, Murmur - GI/Abdominal Exam GI & Abdominal Exam: Soft, Normal Bowel Sounds. absent: Distended, Tenderness - Extremities Exam Extremities Exam: Normal Capillary Refill. absent: Pedal Edema - Neurological Exam Neurological Exam: Alert, Awake, Oriented x3 - Psychiatric Exam Psychiatric exam: Normal Affect, Normal Mood - Skin Skin Exam: Dry, Intact, Normal Color, Warm Assessment and Plan - Assessment and Plan (Free Text) Assessment: 51 year old female with medical history of asthma, HTN, enlarged heart, arrhythmia, bursitis of the shoulder admitted for SOB 2/2 to asthma exacerbation vs possible PNE. Plan: 1. asthma exacerbation - due to poss pne vs uri - duoneb q6 [place], q2 prn - taper Solumedrol from 40 Q12H to 30 Q12H - o2 prn 2. possible CAP - cxr showed a patchy opacity possible artifact vs infiltrate. Likely artifact. - will treat for pne, continue ceftriaxone and azithromycin - Procal: 0.08 - Blood Cultures - NEGATIVE x 24h 3. HTN - controlled - continue lorsartan- hctz - will hold metoprolol for asthma exacerbation, if increased heart rate, restart - continue to monitor GI ppx- protonix DVT ppx- heparin Disposition: Patient changed to inpatient. Will likely go home tomorrow. <Marni Noel A - Last Filed: 10/08/17 16:34> Objective - Vital Signs/Intake and Output Vital Signs (last 24 hours): Temp Pulse Resp BP Pulse Ox 98.0 F 108 H 20 137/76 96 10/08/17 09:38 10/08/17 10:00 10/08/17 08:42 10/08/17 08:42 10/08/17 08:42 Intake and Output: 10/08/17 10/08/17 06:59 18:59 Intake Total 540 480 Balance 540 480 - Medications Medications: Current Medications Acetaminophen (Tylenol 325mg Tab) 650 mg PO Q6H PRN PRN Reason: Pain or Fever Albuterol/Ipratropium (Duoneb 3 Mg/0.5 Mg (3 Ml) Ud) 3 ml IH Q2H PRN PRN Reason: Shortness of Breath Albuterol/Ipratropium (Duoneb 3 Mg/0.5 Mg (3 Ml) Ud) 3 ml IH [id number] [facility] Last Admin: 10/08/17 13:48 Dose: 3 ml Guaifenesin (Robitussin) 200 mg PO Q4H PRN PRN Reason: Cough and congestion Heparin Sodium (Porcine) (Heparin) 5,000 units SC Q12 [facility] PRN Reason: Protocol Last Admin: 10/08/17 09:39 Dose: 5,000 units Hydrochlorothiazide (Hydrodiuril) 25 mg PO DAILY [facility] Last Admin: 10/08/17 09:39 Dose: 25 mg Ceftriaxone Sodium (Rocephin 1 Gram Ivpb (D5w)) 1 gm in 100 mls @ 100 mls/hr IVPB DAILY [facility] PRN Reason: Protocol Last Admin: 10/08/17 09:42 Dose: 100 mls/hr Azithromycin (Zithromax 500mg In Ns) 500 mg in 250 mls @ 167 mls/hr IVPB DAILY [facility] PRN Reason: Protocol Last Admin: 10/08/17 09:42 Dose: 167 mls/hr Losartan Potassium (Cozaar) 100 mg PO DAILY [facility] Last Admin: 10/08/17 09:39 Dose: 100 mg Methylprednisolone (Solu-Medrol) 30 mg IVP Q12 [facility] Pantoprazole Sodium (Protonix Ec Tab) 40 mg PO DAILY [facility] Last Admin: 10/08/17 09:39 Dose: 40 mg - Labs Labs: 10/08/17 05:30 10/08/17 05:30 Attending/Attestation - Attestation I have personally seen and examined this patient.: Yes I have fully participated in the care of the patient.: Yes I have reviewed all pertinent clinical information, including history, physical exam and plan: Yes Notes (Text): 10/08/17 16:33 51 year old female with past medical history of hypertension and asthma who presented with shortness of breath secondary to asthma exacerbation and possible pneumonia as seen on chest xray. Continue with iv steroids, antibiotics and duonebs. Wheezing is slightly improved today; will begin to taper iv solumedrol. Continue with HCTZ and cozaar for hypertension. Marni Noel MD Hospitalist.
[2017-10-08] MEDS: guaiFENesin 200 mg/10 ml Syrup UD PO PRN (20:11)
[2017-10-09 07:39] LABS: GRAN # 22.05 (1.4-6.5); GRAN % 88.2 % (50.0-68.0); HEMATOCRIT 38.9 % (36.0-48.0); LYMPH # 1.9 (1.2-3.4); LYMPH % 7.6 % (22.0-35.0); MEAN CELL VOLUME 80.9 fl (80.0-105.0); MEAN CORPUSCULAR HEMOGLOBIN 25.8 pg (25.0-35.0); MEAN CORPUSCULAR HGB CONC 31.9 g/dl (31.0-37.0); MEAN PLATELET VOLUME 9.8 fl (7.0-11.0); MONO % 4.2 % (1.0-6.0); RED CELL DISTRIBUTION WIDTH 15.1 % (11.5-14.5)
[2017-10-09 07:43] LABS: ALB/GLOB RATIO 1.1 (1.1-1.8); ALKALINE PHOSPHATASE 89 U/L (38-126); ALT/SGPT 36 U/L (7-56); AST/SGOT 26 U/L (14-36); BILIRUBIN,TOTAL 0.3 mg/dL (0.2-1.3); BLOOD UREA NITROGEN 14 mg/dL (7-21); CALCIUM 9.5 mg/dL (8.4-10.5); CARBON DIOXIDE 25 mmol/L (21-33); CHLORIDE 104 mmol/L (98-107); GFR AFRICAN-AMERICAN > 60; GLUCOSE,RANDOM 135 mg/dL (70-110); POTASSIUM 4.6 mmol/L (3.6-5.0); SODIUM 140 mmol/L (132-148); TOTAL PROTEIN 7.7 g/dL (5.8-8.3)
[2017-10-09] MEDS: Albuterol-Ipratrop 3 mg / 0.5 (3 ml) UD IH SCH ×3 (08:05→19:58)
[2017-10-09] MEDS: MethylPREDNISolone 40 mg Vial IVP SCH ×2 (09:33→21:31)
[2017-10-09] MEDS: Pantoprazole 40 mg EC Tab PO SCH (09:34)
[2017-10-09] MEDS: Azithromycin 500MG/NS 250ml 500 MG/250 ML BAG IVPB SCH (09:34)
[2017-10-09] MEDS: cefTRIAXone 1 gm 1 GM/100 ML BAG IVPB SCH (09:35)
[2017-10-09] MEDS: guaiFENesin 200 mg/10 ml Syrup UD PO PRN ×3 (09:40→21:44)
--- NOTE | 2017-10-09 12:41 | RAD ---
HISTORY: chest tightness, SOB, wheezing. Technique: Single view portable semi erect @ . 09:55 COMPARISON: No prior. FINDINGS: LUNGS: No active pulmonary disease. PLEURA: No significant pleural effusion identified, no pneumothorax apparent. CARDIOVASCULAR: No radiographic findings to suggest acute or significant cardiovascular disease. OSSEOUS STRUCTURES: No significant abnormalities. VISUALIZED UPPER ABDOMEN: Normal. OTHER FINDINGS: None. IMPRESSION: No active disease.
--- NOTE | 2017-10-09 15:38 | CP.PCM.PN ---
<Susan Chicas - Last Filed: 10/09/17 15:33> Subjective - Date & Time of Evaluation Date of Evaluation: 10/09/17 Time of Evaluation: 08:45 - Subjective Subjective: Patient has been seen and examined. No overnight events reported. Patient states that neither her cough nor her SOB has improved. She denies any fevers, chills, chest pain, abdominal pain, changes in bowel habits, or urinary symptoms. Patient was switched room today that was 2 doors down. She got short of breath walking to her new room. This was confirmed by the nurse. Objective - Vital Signs/Intake and Output Vital Signs (last 24 hours): Temp Pulse Resp BP Pulse Ox 98.4 F 76 18 138/75 96 10/09/17 06:00 10/09/17 06:00 10/09/17 06:00 10/09/17 06:00 10/09/17 06:00 Intake and Output: 10/09/17 10/09/17 06:59 18:59 Intake Total 540 0 Balance 540 0 - Medications Medications: Current Medications Acetaminophen (Tylenol 325mg Tab) 650 mg PO Q6H PRN PRN Reason: Pain or Fever Last Admin: 10/09/17 10:21 Dose: 650 mg Albuterol/Ipratropium (Duoneb 3 Mg/0.5 Mg (3 Ml) Ud) 3 ml IH Q2H PRN PRN Reason: Shortness of Breath Albuterol/Ipratropium (Duoneb 3 Mg/0.5 Mg (3 Ml) Ud) 3 ml IH [id number] [facility] Last Admin: 10/09/17 14:59 Dose: 3 ml Guaifenesin (Robitussin) 200 mg PO Q4H PRN PRN Reason: Cough and congestion Last Admin: 10/09/17 09:40 Dose: 200 mg Heparin Sodium (Porcine) (Heparin) 5,000 units SC Q12 [facility] PRN Reason: Protocol Last Admin: 10/09/17 09:33 Dose: 5,000 units Hydrochlorothiazide (Hydrodiuril) 25 mg PO DAILY [facility] Last Admin: 10/09/17 09:33 Dose: 25 mg Ceftriaxone Sodium (Rocephin 1 Gram Ivpb (D5w)) 1 gm in 100 mls @ 100 mls/hr IVPB DAILY [facility] PRN Reason: Protocol Last Admin: 10/09/17 09:35 Dose: 100 mls/hr Azithromycin (Zithromax 500mg In Ns) 500 mg in 250 mls @ 167 mls/hr IVPB DAILY [facility] PRN Reason: Protocol Last Admin: 10/09/17 09:34 Dose: 167 mls/hr Losartan Potassium (Cozaar) 100 mg PO DAILY [facility] Last Admin: 10/09/17 09:34 Dose: 100 mg Methylprednisolone (Solu-Medrol) 30 mg IVP Q12 [facility] Last Admin: 10/09/17 09:33 Dose: 30 mg Pantoprazole Sodium (Protonix Ec Tab) 40 mg PO DAILY [facility] Last Admin: 10/09/17 09:34 Dose: 40 mg - Labs Labs: 10/09/17 06:30 10/09/17 06:30 - Additional Findings Additional findings: - Constitutional Appears: No Acute Distress - Head Exam Head Exam: ATRAUMATIC, NORMAL INSPECTION, NORMOCEPHALIC - Eye Exam Eye Exam: Normal appearance - ENT Exam ENT Exam: Mucous Membranes Moist - Respiratory Exam Respiratory Exam: minimal Wheezes (Expiratory, B/L, Diffuse L>R). absent: Clear to Ausculation Bilateral, Rales, Rhonchi Additional comments: Slight Conversational dyspnea - Cardiovascular Exam Cardiovascular Exam: Irregular Rhythm, +S1, +S2. absent: JVD, Murmur - GI/Abdominal Exam GI & Abdominal Exam: Soft, Normal Bowel Sounds. absent: Distended, Tenderness - Extremities Exam Extremities Exam: Normal Capillary Refill. absent: Pedal Edema - Neurological Exam Neurological Exam: Alert, Awake, Oriented x3 - Psychiatric Exam Psychiatric exam: Normal Affect, Normal Mood - Skin Skin Exam: Dry, Intact, Normal Color, Warm Assessment and Plan - Assessment and Plan (Free Text) Assessment: 51 year old female with medical history of asthma, HTN, enlarged heart, arrhythmia, bursitis of the shoulder admitted for SOB 2/2 to asthma exacerbation vs possible PNE. Plan: 1. asthma exacerbation - due to poss pne vs uri - duoneb q6 [place], q2 prn - Solumedrol 30 Q12H - o2 prn 2. possible CAP - cxr showed a patchy opacity possible artifact vs infiltrate. Likely artifact. - repeat cxr on 10/09 showed no active disease. - will treat for pne, continue ceftriaxone and azithromycin - Procal: 0.08 - Blood Cultures - NEGATIVE x 24h 3. HTN - controlled - continue lorsartan- hctz - will hold metoprolol for asthma exacerbation, if increased heart rate, restart - continue to monitor GI ppx- protonix DVT ppx- heparin Disposition: Patient is still has conversational and exertional dyspnea. We will keep for 1 more day and plan for dc tomorrow. Patient seen, examined, and discussed with Attending Susan Chicas - PGY1 <Marni Noel - Last Filed: 10/09/17 16:25> Objective - Vital Signs/Intake and Output Vital Signs (last 24 hours): Temp Pulse Resp BP Pulse Ox 98.4 F 83 18 138/75 96 10/09/17 06:00 10/09/17 14:00 10/09/17 06:00 10/09/17 06:00 10/09/17 06:00 Intake and Output: 10/09/17 10/09/17 06:59 18:59 Intake Total 540 0 Balance 540 0 - Medications Medications: Current Medications Acetaminophen (Tylenol 325mg Tab) 650 mg PO Q6H PRN PRN Reason: Pain or Fever Last Admin: 10/09/17 10:21 Dose: 650 mg Albuterol/Ipratropium (Duoneb 3 Mg/0.5 Mg (3 Ml) Ud) 3 ml IH Q2H PRN PRN Reason: Shortness of Breath Albuterol/Ipratropium (Duoneb 3 Mg/0.5 Mg (3 Ml) Ud) 3 ml IH [id number] [facility] Last Admin: 10/09/17 14:59 Dose: 3 ml Guaifenesin (Robitussin) 200 mg PO Q4H PRN PRN Reason: Cough and congestion Last Admin: 10/09/17 09:40 Dose: 200 mg Heparin Sodium (Porcine) (Heparin) 5,000 units SC Q12 [facility] PRN Reason: Protocol Last Admin: 10/09/17 09:33 Dose: 5,000 units Hydrochlorothiazide (Hydrodiuril) 25 mg PO DAILY [facility] Last Admin: 10/09/17 09:33 Dose: 25 mg Ceftriaxone Sodium (Rocephin 1 Gram Ivpb (D5w)) 1 gm in 100 mls @ 100 mls/hr IVPB DAILY [facility] PRN Reason: Protocol Last Admin: 10/09/17 09:35 Dose: 100 mls/hr Azithromycin (Zithromax 500mg In Ns) 500 mg in 250 mls @ 167 mls/hr IVPB DAILY [facility] PRN Reason: Protocol Last Admin: 10/09/17 09:34 Dose: 167 mls/hr Losartan Potassium (Cozaar) 100 mg PO DAILY [facility] Last Admin: 10/09/17 09:34 Dose: 100 mg Methylprednisolone (Solu-Medrol) 30 mg IVP Q12 [facility] Last Admin: 10/09/17 09:33 Dose: 30 mg Pantoprazole Sodium (Protonix Ec Tab) 40 mg PO DAILY [facility] Last Admin: 10/09/17 09:34 Dose: 40 mg - Labs Labs: 10/09/17 06:30 10/09/17 06:30 Attending/Attestation - Attestation I have personally seen and examined this patient.: Yes I have fully participated in the care of the patient.: Yes I have reviewed all pertinent clinical information, including history, physical exam and plan: Yes Notes (Text): 10/09/17 16:23 51 year old female with past medical history of hypertension and asthma who presented with shortness of breath secondary to asthma exacerbation and possible pneumonia as seen on chest xray. Symptoms are slowly improving on iv steroids, antibiotics and duonebs. Leukocytosis noted; likely secondary to iv steroids. Will monitor. Repeat CXR was negative. She is also on HCTZ and cozaar for hypertension. Consider d/c planning 24-48 hrs if symptoms continue to improve. Marni Noel MD Hospitalist.
[2017-10-10 07:25] LABS: BASO # 0.02 K/mm3 (0.0-2.0); BASO % 0.1 % (0.0-3.0); GRAN # 21.56 (1.4-6.5); GRAN % 88.4 % (50.0-68.0); HEMATOCRIT 41.8 % (36.0-48.0); LYMPH # 1.8 (1.2-3.4); LYMPH % 7.4 % (22.0-35.0); MEAN CELL VOLUME 81.6 fl (80.0-105.0); MEAN CORPUSCULAR HGB CONC 31.8 g/dl (31.0-37.0); MEAN PLATELET VOLUME 9.6 fl (7.0-11.0); MONO % 4.1 % (1.0-6.0); RED CELL DISTRIBUTION WIDTH 15.2 % (11.5-14.5); WHITE BLOOD COUNT 24.4 10^3/ul (4.5-11.0)
[2017-10-10 08:00] LABS: ALKALINE PHOSPHATASE 93 U/L (38-126); ALT/SGPT 33 U/L (7-56); AST/SGOT 29 U/L (14-36); BILIRUBIN,TOTAL 0.3 mg/dL (0.2-1.3); BLOOD UREA NITROGEN 18 mg/dL (7-21); CALCIUM 9.8 mg/dL (8.4-10.5); CARBON DIOXIDE 25 mmol/L (21-33); CHLORIDE 104 mmol/L (98-107); GFR AFRICAN-AMERICAN > 60; GLUCOSE,RANDOM 106 mg/dL (70-110); POTASSIUM 4.3 mmol/L (3.6-5.0); SODIUM 139 mmol/L (132-148); TOTAL PROTEIN 7.9 g/dL (5.8-8.3)
[2017-10-10] MEDS: guaiFENesin 200 mg/10 ml Syrup UD PO PRN ×4 (08:07→21:57)
[2017-10-10] MEDS: Albuterol-Ipratrop 3 mg / 0.5 (3 ml) UD IH SCH ×3 (08:55→19:34)
[2017-10-10] MEDS: MethylPREDNISolone 40 mg Vial IVP SCH ×2 (09:45→21:53)
[2017-10-10] MEDS: Pantoprazole 40 mg EC Tab PO SCH (09:46)
[2017-10-10] MEDS: cefTRIAXone 1 gm 1 GM/100 ML BAG IVPB SCH (09:47)
[2017-10-10] MEDS: Azithromycin 500MG/NS 250ml 500 MG/250 ML BAG IVPB SCH (09:47)
--- NOTE | 2017-10-10 16:00 | CP.PCM.PN ---
<EthandeejayTimmynatalie - Last Filed: 10/10/17 15:57> Subjective - Date & Time of Evaluation Date of Evaluation: 10/10/17 Time of Evaluation: 09:30 - Subjective Subjective: Patient has been seen and examined. No overnight events reported. Patient states that her cough and SOB has only slightly improved. She denies any fevers , chills, chest pain, abdominal pain, changes in bowel habits, or urinary symptoms. She does complain of chest tightness Objective - Vital Signs/Intake and Output Vital Signs (last 24 hours): Temp Pulse Resp BP Pulse Ox 97.6 F 70 20 127/67 96 10/10/17 08:47 10/10/17 08:47 10/10/17 08:47 10/10/17 08:47 10/10/17 08:47 Intake and Output: 10/10/17 10/10/17 06:59 18:59 Intake Total 780 Balance 780 - Medications Medications: Current Medications Acetaminophen (Tylenol 325mg Tab) 650 mg PO Q6H PRN PRN Reason: Pain or Fever Last Admin: 10/10/17 14:13 Dose: 650 mg Albuterol/Ipratropium (Duoneb 3 Mg/0.5 Mg (3 Ml) Ud) 3 ml IH Q2H PRN PRN Reason: Shortness of Breath Albuterol/Ipratropium (Duoneb 3 Mg/0.5 Mg (3 Ml) Ud) 3 ml IH [id number] [facility] Last Admin: 10/10/17 14:39 Dose: 3 ml Benzonatate (Tessalon Perles) 100 mg PO TID PRN PRN Reason: Cough Guaifenesin (Robitussin) 200 mg PO Q4H PRN PRN Reason: Cough and congestion Last Admin: 10/10/17 14:14 Dose: 200 mg Heparin Sodium (Porcine) (Heparin) 5,000 units SC Q12 [facility] PRN Reason: Protocol Last Admin: 10/10/17 09:46 Dose: 5,000 units Hydrochlorothiazide (Hydrodiuril) 25 mg PO DAILY [facility] Last Admin: 10/10/17 09:46 Dose: 25 mg Ceftriaxone Sodium (Rocephin 1 Gram Ivpb (D5w)) 1 gm in 100 mls @ 100 mls/hr IVPB DAILY [facility] PRN Reason: Protocol Last Admin: 10/10/17 09:47 Dose: 100 mls/hr Azithromycin (Zithromax 500mg In Ns) 500 mg in 250 mls @ 167 mls/hr IVPB DAILY [facility] PRN Reason: Protocol Last Admin: 10/10/17 09:47 Dose: 167 mls/hr Losartan Potassium (Cozaar) 100 mg PO DAILY [facility] Last Admin: 10/10/17 09:46 Dose: 100 mg Methylprednisolone (Solu-Medrol) 30 mg IVP Q12 [facility] Last Admin: 10/10/17 09:45 Dose: 30 mg Pantoprazole Sodium (Protonix Ec Tab) 40 mg PO DAILY [facility] Last Admin: 10/10/17 09:46 Dose: 40 mg - Labs Labs: 10/10/17 06:30 10/10/17 06:30 - Additional Findings Additional findings: - Constitutional Appears: No Acute Distress - Head Exam Head Exam: ATRAUMATIC, NORMAL INSPECTION, NORMOCEPHALIC - Eye Exam Eye Exam: Normal appearance - ENT Exam ENT Exam: Mucous Membranes Moist - Respiratory Exam Respiratory Exam: minimal Wheezes (improved) (Expiratory, B/L, Diffuse L>R), Rhonchi. absent: Clear to Ausculation Bilateral, Rales Additional comments: Slight Conversational dyspnea - Cardiovascular Exam Cardiovascular Exam: Irregular Rhythm, +S1, +S2. absent: JVD, Murmur - GI/Abdominal Exam GI & Abdominal Exam: Soft, Normal Bowel Sounds. absent: Distended, Tenderness - Extremities Exam Extremities Exam: Normal Capillary Refill. absent: Pedal Edema - Neurological Exam Neurological Exam: Alert, Awake, Oriented x3 - Psychiatric Exam Psychiatric exam: Normal Affect, Normal Mood - Skin Skin Exam: Dry, Intact, Normal Color, Warm Assessment and Plan - Assessment and Plan (Free Text) Assessment: 51 year old female with medical history of asthma, HTN, enlarged heart, arrhythmia, bursitis of the shoulder admitted for SOB 2/2 to asthma exacerbation vs possible PNE. Plan: 1. asthma exacerbation - due to possible bronchitis - duoneb q6 [facility], q2 prn - Solumedrol 30 Q12H - o2 prn 2. Possible Bronchitis vs Atypical PNA - cxr showed a patchy opacity possible artifact vs infiltrate. Likely artifact. - repeat cxr on 10/09 showed no active disease. - continue ceftriaxone and azithromycin - Procal: 0.08 - Blood Cultures - NEGATIVE x 72hours 3. HTN - controlled - continue lorsartan- hctz - will hold metoprolol for asthma exacerbation, if increased heart rate, restart - continue to monitor GI ppx- protonix DVT ppx- heparin Disposition: Patient is still has conversational and exertional dyspnea. We will keep for 1 more day and plan for dc tomorrow. Patient seen, examined, and discussed with Attending Susan Chicas - PGY1 <Marni Noel - Last Filed: 10/10/17 17:08> Objective - Vital Signs/Intake and Output Vital Signs (last 24 hours): Temp Pulse Resp BP Pulse Ox 98.4 F 85 18 150/80 95 10/10/17 16:30 10/10/17 16:30 10/10/17 16:30 10/10/17 16:30 10/10/17 16:30 Intake and Output: 10/10/17 10/10/17 06:59 18:59 Intake Total 780 Balance 780 - Medications Medications: Current Medications Acetaminophen (Tylenol 325mg Tab) 650 mg PO Q6H PRN PRN Reason: Pain or Fever Last Admin: 10/10/17 14:13 Dose: 650 mg Albuterol/Ipratropium (Duoneb 3 Mg/0.5 Mg (3 Ml) Ud) 3 ml IH Q2H PRN PRN Reason: Shortness of Breath Albuterol/Ipratropium (Duoneb 3 Mg/0.5 Mg (3 Ml) Ud) 3 ml IH [id number] [facility] Last Admin: 10/10/17 14:39 Dose: 3 ml Benzonatate (Tessalon Perles) 100 mg PO TID PRN PRN Reason: Cough Guaifenesin (Robitussin) 200 mg PO Q4H PRN PRN Reason: Cough and congestion Last Admin: 10/10/17 14:14 Dose: 200 mg Heparin Sodium (Porcine) (Heparin) 5,000 units SC Q12 [facility] PRN Reason: Protocol Last Admin: 10/10/17 09:46 Dose: 5,000 units Hydrochlorothiazide (Hydrodiuril) 25 mg PO DAILY [facility] Last Admin: 10/10/17 09:46 Dose: 25 mg Ceftriaxone Sodium (Rocephin 1 Gram Ivpb (D5w)) 1 gm in 100 mls @ 100 mls/hr IVPB DAILY [facility] PRN Reason: Protocol Last Admin: 10/10/17 09:47 Dose: 100 mls/hr Azithromycin (Zithromax 500mg In Ns) 500 mg in 250 mls @ 167 mls/hr IVPB DAILY [facility] PRN Reason: Protocol Last Admin: 10/10/17 09:47 Dose: 167 mls/hr Losartan Potassium (Cozaar) 100 mg PO DAILY [facility] Last Admin: 10/10/17 09:46 Dose: 100 mg Methylprednisolone (Solu-Medrol) 30 mg IVP Q12 [facility] Last Admin: 10/10/17 09:45 Dose: 30 mg Pantoprazole Sodium (Protonix Ec Tab) 40 mg PO DAILY [facility] Last Admin: 10/10/17 09:46 Dose: 40 mg - Labs Labs: 10/10/17 06:30 10/10/17 06:30 Attending/Attestation - Attestation I have personally seen and examined this patient.: Yes I have fully participated in the care of the patient.: Yes I have reviewed all pertinent clinical information, including history, physical exam and plan: Yes Notes (Text): 10/10/17 17:06 51 year old female with past medical history of hypertension and asthma who presented with shortness of breath secondary to asthma exacerbation and possible pneumonia as seen on chest xray. She is on iv steroids, antibiotics, duonebs and robitussin. Today she continued to complain of excessive cough. Will add on tessalon perles. Leukocytosis likely secondary to iv steroids. Will continue to monitor. Repeat CXR was negative. She is on HCTZ and cozaar for hypertension. Marni Noel MD Hospitalist.
[2017-10-10 16:31] VITALS: O2SAT 95
[2017-10-11] MEDS: Albuterol-Ipratrop 3 mg / 0.5 (3 ml) UD IH SCH ×3 (01:26→13:57)
[2017-10-11] MEDS: guaiFENesin 200 mg/10 ml Syrup UD PO PRN ×2 (02:32→09:19)
[2017-10-11 07:16] LABS: BASO # 0.02 K/mm3 (0.0-2.0); BASO % 0.1 % (0.0-3.0); GRAN # 19.04 (1.4-6.5); GRAN % 85.6 % (50.0-68.0); HEMATOCRIT 41.6 % (36.0-48.0); LYMPH # 2.3 (1.2-3.4); LYMPH % 10.4 % (22.0-35.0); MEAN CELL VOLUME 81.1 fl (80.0-105.0); MEAN CORPUSCULAR HEMOGLOBIN 25.7 pg (25.0-35.0); MEAN CORPUSCULAR HGB CONC 31.7 g/dl (31.0-37.0); MEAN PLATELET VOLUME 9.6 fl (7.0-11.0); MONO # 0.9 (0.1-0.6); MONO % 3.9 % (1.0-6.0); RED CELL DISTRIBUTION WIDTH 15.1 % (11.5-14.5); WHITE BLOOD COUNT 22.2 10^3/ul (4.5-11.0)
[2017-10-11 07:35] VITALS: BP 133/74; PULSE 80; RESP 20; TEMP 98
[2017-10-11 07:44] LABS: ALB/GLOB RATIO 1.1 (1.1-1.8); ALKALINE PHOSPHATASE 89 U/L (38-126); ALT/SGPT 39 U/L (7-56); AST/SGOT 30 U/L (14-36); BILIRUBIN,TOTAL 0.4 mg/dL (0.2-1.3); BLOOD UREA NITROGEN 22 mg/dL (7-21); CALCIUM 9.3 mg/dL (8.4-10.5); CARBON DIOXIDE 25 mmol/L (21-33); CHLORIDE 100 mmol/L (98-107); GFR AFRICAN-AMERICAN > 60; GLUCOSE,RANDOM 131 mg/dL (70-110); POTASSIUM 4.3 mmol/L (3.6-5.0); SODIUM 137 mmol/L (132-148); TOTAL PROTEIN 7.7 g/dL (5.8-8.3)
--- NOTE | 2017-10-11 08:54 | CP.PCM.DIS ---
<Susan Chicas - Last Filed: 10/11/17 15:01> Provider - Provider Date of Admission: 10/08/17 15:49 Attending physician: Marni Noel MD Primary care physician: Burt Martin MD Time Spent in preparation of Discharge (in minutes): 40 Diagnosis - Discharge Diagnosis (1) Asthma exacerbation Status: Acute Hospital Course - Lab Results Lab Results: Most Recent Lab Values WBC 22.2 10^3/ul (4.5-11.0) H 10/11/17 06:20 RBC 5.13 10^6/uL (3.5-6.1) 10/11/17 06:20 Hgb 13.2 g/dL (12.0-16.0) 10/11/17 06:20 Hct 41.6 % (36.0-48.0) 10/11/17 06:20 MCV 81.1 fl (80.0-105.0) 10/11/17 06:20 MCH 25.7 pg (25.0-35.0) 10/11/17 06:20 MCHC 31.7 g/dl (31.0-37.0) 10/11/17 06:20 RDW 15.1 % (11.5-14.5) H 10/11/17 06:20 Plt Count 397 10^3/uL (120.0-450.0) 10/11/17 06:20 MPV 9.6 fl (7.0-11.0) 10/11/17 06:20 Gran % 85.6 % (50.0-68.0) H 10/11/17 06:20 Lymph % (Auto) 10.4 % (22.0-35.0) L 10/11/17 06:20 Irion % (Auto) 3.9 % (1.0-6.0) 10/11/17 06:20 Eos % (Auto) 0.0 % (1.5-5.0) L 10/11/17 06:20 Baso % (Auto) 0.1 % (0.0-3.0) 10/11/17 06:20 Gran # 19.04 (1.4-6.5) H 10/11/17 06:20 Lymph # 2.3 (1.2-3.4) 10/11/17 06:20 Irion # 0.9 (0.1-0.6) H 10/11/17 06:20 Eos # 0.0 (0.0-0.7) 10/11/17 06:20 Baso # 0.02 K/mm3 (0.0-2.0) 10/11/17 06:20 Sodium 137 mmol/L (132-148) 10/11/17 06:20 Potassium 4.3 mmol/L (3.6-5.0) 10/11/17 06:20 Chloride 100 mmol/L (98-107) 10/11/17 06:20 Carbon Dioxide 25 mmol/L (21-33) 10/11/17 06:20 Anion Gap 16 (10-20) 10/11/17 06:20 BUN 22 mg/dL (7-21) H 10/11/17 06:20 Creatinine 0.7 mg/dl (0.7-1.2) 10/11/17 06:20 Est GFR ( Amer) > 60 10/11/17 06:20 Est GFR (Non-Af Amer) > 60 10/11/17 06:20 Random Glucose 131 mg/dL (70-110) H 10/11/17 06:20 Calcium 9.3 mg/dL (8.4-10.5) 10/11/17 06:20 Total Bilirubin 0.4 mg/dL (0.2-1.3) 10/11/17 06:20 AST 30 U/L (14-36) 10/11/17 06:20 ALT 39 U/L (7-56) 10/11/17 06:20 Alkaline Phosphatase 89 U/L (38-126) 10/11/17 06:20 Total Creatine Kinase 178 U/L (35-230) 10/07/17 13:20 Troponin I < 0.01 ng/mL 10/07/17 13:20 Total Protein 7.7 g/dL (5.8-8.3) 10/11/17 06:20 Albumin 4.0 g/dL (3.0-4.8) 10/11/17 06:20 Globulin 3.7 gm/dL 10/11/17 06:20 Albumin/Globulin Ratio 1.1 (1.1-1.8) 12/22/17 06:20 Procalcitonin 0.08 NG/ML (0.19-0.49) L 10/07/17 13:20 - Hospital Course Hospital Course: 51 year old female with medical history of asthma, HTN, enlarged heart, arrhythmia, and bursitis of the shoulder admitted for evaluation and treatment of SOB likely 2/2 to Asthma Exacerbation. CXR on admission showed patchy opacity possible artifact vs infiltrate. Repeat CXR on 10/09 showed no active disease. Procal low at 0.08, and blood cultures were negative for 4 days. Patient treated with duonebs, IV antibiotics (Rocephin and Azithromycin), and steroid taper. Cough was treated with Robitussin and Tessalon pereles. Liver enzymes were very midly elevated on admission but has resolved within normal limits. Patient's cough and SOB have improved and she is saturating well on room air. Patient is stable for discharge. We prescribed 2 more days of Azithromycin, Tessalon perles, and Medrol dose pack for her to go home with. She has been told she can also take OTC Robitussin for her cough. Patient has been advised to follow up with her primary medical physician. Patient is agreeable to plan and medications. Patient discussed and seen with Attending (Dr. Noel) Susan Chicas PGY-1 - Date & Time of H&P Date of H&P: 10/11/17 Time of H&P: 11:30 Discharge Exam - Head Exam Head Exam: ATRAUMATIC, NORMAL INSPECTION, NORMOCEPHALIC - Additional Findings Additional findings: - Constitutional Appears: No Acute Distress - Head Exam Head Exam: ATRAUMATIC, NORMAL INSPECTION, NORMOCEPHALIC - Eye Exam Eye Exam: Normal appearance - ENT Exam ENT Exam: Mucous Membranes Moist - Respiratory Exam Respiratory Exam: Clear to Auscliltation. absent: wheezing, rhonchi, stridor Additional comments: Absent: Conversational dyspnea - Cardiovascular Exam Cardiovascular Exam: Irregular Rhythm, +S1, +S2. absent: JVD, Murmur - GI/Abdominal Exam GI & Abdominal Exam: Soft, Normal Bowel Sounds. absent: Distended, Tenderness - Extremities Exam Extremities Exam: Normal Capillary Refill. absent: Pedal Edema - Neurological Exam Neurological Exam: Alert, Awake, Oriented x3 - Psychiatric Exam Psychiatric exam: Normal Affect, Normal Mood - Skin Skin Exam: Dry, Intact, Normal Color, Warm Discharge Plan - Discharge Medications Prescriptions: Azithromycin [Z-Robert] 250 mg PO DAILY #2 tab Benzonatate [Tessalon Perle] 100 mg PO TID PRN #21 capsule PRN Reason: Cough Methylprednisolone [Medrol Dose Pack (21 tabs)] 4 mg PO ASDIR #21 mg - Follow Up Plan Condition: FAIR Disposition: HOME/ ROUTINE Additional Instructions: Please follow up with your primary medical physician. Please take medications as instructed. You may also take [id number] Robitussin to help with the cough. If your symptoms worsen, please return to the ED. Referrals: Burt Martin MD [Primary Care Provider] - <Marni Noel - Last Filed: 10/11/17 15:42> Provider - Provider Date of Admission: 10/08/17 15:49 Attending physician: Marni Noel MD Primary care physician: Burt Martin MD Hospital Course - Lab Results Lab Results: Most Recent Lab Values WBC 22.2 10^3/ul (4.5-11.0) H 10/11/17 06:20 RBC 5.13 10^6/uL (3.5-6.1) 10/11/17 06:20 Hgb 13.2 g/dL (12.0-16.0) 10/11/17 06:20 Hct 41.6 % (36.0-48.0) 10/11/17 06:20 MCV 81.1 fl (80.0-105.0) 10/11/17 06:20 MCH 25.7 pg (25.0-35.0) 10/11/17 06:20 MCHC 31.7 g/dl (31.0-37.0) 10/11/17 06:20 RDW 15.1 % (11.5-14.5) H 10/11/17 06:20 Plt Count 397 10^3/uL (120.0-450.0) 10/11/17 06:20 MPV 9.6 fl (7.0-11.0) 10/11/17 06:20 Gran % 85.6 % (50.0-68.0) H 10/11/17 06:20 Lymph % (Auto) 10.4 % (22.0-35.0) L 10/11/17 06:20 Irion % (Auto) 3.9 % (1.0-6.0) 10/11/17 06:20 Eos % (Auto) 0.0 % (1.5-5.0) L 10/11/17 06:20 Baso % (Auto) 0.1 % (0.0-3.0) 10/11/17 06:20 Gran # 19.04 (1.4-6.5) H 10/11/17 06:20 Lymph # 2.3 (1.2-3.4) 10/11/17 06:20 Irion # 0.9 (0.1-0.6) H 10/11/17 06:20 Eos # 0.0 (0.0-0.7) 10/11/17 06:20 Baso # 0.02 K/mm3 (0.0-2.0) 10/11/17 06:20 Sodium 137 mmol/L (132-148) 10/11/17 06:20 Potassium 4.3 mmol/L (3.6-5.0) 10/11/17 06:20 Chloride 100 mmol/L (98-107) 10/11/17 06:20 Carbon Dioxide 25 mmol/L (21-33) 10/11/17 06:20 Anion Gap 16 (10-20) 10/11/17 06:20 BUN 22 mg/dL (7-21) H 10/11/17 06:20 Creatinine 0.7 mg/dl (0.7-1.2) 10/11/17 06:20 Est GFR ( Amer) > 60 10/11/17 06:20 Est GFR (Non-Af Amer) > 60 10/11/17 06:20 Random Glucose 131 mg/dL (70-110) H 10/11/17 06:20 Calcium 9.3 mg/dL (8.4-10.5) 10/11/17 06:20 Total Bilirubin 0.4 mg/dL (0.2-1.3) 10/11/17 06:20 AST 30 U/L (14-36) 10/11/17 06:20 ALT 39 U/L (7-56) 10/11/17 06:20 Alkaline Phosphatase 89 U/L (38-126) 10/11/17 06:20 Total Creatine Kinase 178 U/L (35-230) 10/07/17 13:20 Troponin I < 0.01 ng/mL 10/07/17 13:20 Total Protein 7.7 g/dL (5.8-8.3) 10/11/17 06:20 Albumin 4.0 g/dL (3.0-4.8) 10/11/17 06:20 Globulin 3.7 gm/dL 10/11/17 06:20 Albumin/Globulin Ratio 1.1 (1.1-1.8) 10/11/17 06:20 Procalcitonin 0.08 NG/ML (0.19-0.49) L 10/07/17 13:20 Attending/Attestation - Attestation I have personally seen and examined this patient.: Yes I have fully participated in the care of the patient.: Yes I have reviewed all pertinent clinical information, including history, physical exam and plan: Yes Notes (Text): 10/11/17 15:41 51 year old female with past medical history of hypertension and asthma who presented with shortness of breath secondary to asthma exacerbation and possible pneumonia as seen on chest xray. She is on iv steroids, antibiotics, duonebs and robitussin with improvement of symptoms. She had some leukocytosis which is likely secondary to iv steroids. Overall her symptoms have improved. She is discharged home today to follow up with her pmd. Continue with medrol dosepack. Marni Noel MD Hospitalist.
[2017-10-11] MEDS: cefTRIAXone 1 gm 1 GM/100 ML BAG IVPB SCH (09:16)
[2017-10-11] MEDS: Pantoprazole 40 mg EC Tab PO SCH (09:16)
[2017-10-11] MEDS: MethylPREDNISolone 40 mg Vial IVP SCH (09:17)
[2017-10-11] MEDS: Azithromycin 500MG/NS 250ml 500 MG/250 ML BAG IVPB SCH (09:19)
== END 2017-10-11 17:30 | disposition home or self-care (01) | DRG 97 ==
LOC: ED 13:10 → ERH 14:12 → 3RSO 15:45 → OBSVTOIN 10-08 15:49 → 3RNO 10-09 13:52
PROVIDERS: ADMIT Hospitalist; ATTEND Internal Medicine
DX: J45.901 Unspecified asthma with (acute) exacerbation (principal); I11.9 Hypertensive heart disease without heart failure; D72.828 Other elevated white blood cell count; T38.0X5A Adverse effect of glucocorticoids and synthetic analogues, initial encounter; M75.50 Bursitis of unspecified shoulder; J06.9 Acute upper respiratory infection, unspecified; Z80.1 Family history of malignant neoplasm of trachea, bronchus and lung; Z82.3 Family history of stroke; Z90.710 Acquired absence of both cervix and uterus

== ENCOUNTER 2018-04-06 06:42 | Emergency (ER) | payer OTHER ==
[2018-04-06 06:42] VITALS: BMI 35.5
[2018-04-06 06:52] VITALS: RESP 18
--- NOTE | 2018-04-06 07:21 | ED PDOC ---
Arrival/HPI - History of Present Illness Time/Duration: 4-6 hours Symptom Onset: Gradual Symptom Course: Worsening Quality: Burning Severity Level: 8 <Irving Uriostegui - Last Filed: 04/06/18 08:59> <Mary Jo Worthy - Last Filed: 04/06/18 09:20> - General Chief Complaint: Upper Extremity Problem/Injury - History of Present Illness Narrative History of Present Illness (Text): Patient is a 52 year old female with a past medical history of hypertension who presents to the Emergency department for evaluation and treatment of right shoulder pain which began this morning. States she moved heavy crates yesterday which she believes to be the provoking event. Pain originates in the anterior deltoid region and radiates to the upper right trapezuis muscle. Pain is described as being sharp in nature and is rated 9/10. Denies fever, chills, chest pain, shortness of breath, abdominal pain, nausea, vomiting, diarrhea, constipation, and urinary symptoms. 04/06/18 07:19 (Irving Uriostegui) Past Medical History - Provider Review Nursing Documentation Reviewed: Yes - Infectious Disease Hx of Infectious Diseases: None - Reproductive Menopause: Yes - Cardiac Hx Cardiac Disorders: Yes (enlarged heart) Hx Cardiac Arrhythmia: Yes Hx Hypertension: Yes Hx Peripheral Edema: Yes (ble+1) - Pulmonary Hx Asthma: Yes - Neurological Hx Neurological Disorder: No - HEENT Hx HEENT Disorder: No - Renal Hx Renal Disorder: No - Endocrine/Metabolic Hx Endocrine Disorders: No - Hematological/Oncological Hx Blood Disorders: No - Integumentary Hx Dermatological Disorder: No - Musculoskeletal/Rheumatological Hx Falls: No - Gastrointestinal Hx Gastrointestinal Disorders: No - Genitourinary/Gynecological Hx Genitourinary Disorders: No - Psychiatric Hx Psychophysiologic Disorder: No Hx Substance Use: No - Surgical History Hx Hysterectomy: Yes - Anesthesia Hx Anesthesia: Yes Hx Anesthesia Reactions: No Hx Malignant Hyperthermia: No <Irving Uriostegui - Last Filed: 04/06/18 08:59> Family/Social History - Physician Review Nursing Documentation Reviewed: Yes Family/Social History: Unknown Family HX Smoking Status: Never Smoked Hx Alcohol Use: Yes (occasional) Hx Substance Use: No <Irving Uriostegui - Last Filed: 04/06/18 08:59> Allergies/Home Meds <Irving Uriostegui - Last Filed: 04/06/18 08:59> <Mary Jo Worthy - Last Filed: 04/06/18 09:20> Allergies/Adverse Reactions: Allergies amoxicillin trihydrate [From Augmentin] Allergy (Verified 04/06/18 06:49) RASH potassium clavulanate [From Augmentin] Allergy (Verified 04/06/18 06:49) RASH Review of Systems - Physician Review All systems were reviewed & negative as marked: Yes - Review of Systems Constitutional: Normal Eyes: Normal ENT: Normal Respiratory: Normal Cardiovascular: Normal Gastrointestinal: Normal Genitourinary Female: Normal Musculoskeletal: Other (right shoulder pain) Skin: Normal Neurological: Normal Endocrine: Normal Hemo/Lymphatic: Normal Psychiatric: Normal <Irving Uriostegui - Last Filed: 04/06/18 08:59> Physical Exam Temperature: Afebrile Blood Pressure: Hypertensive Pulse: Regular Respiratory Rate: Normal Appearance: Positive for: Well-Appearing, Non-Toxic, Comfortable Pain Distress: None Mental Status: Positive for: Alert and Oriented X 3 - Systems Exam Head: Present: Atraumatic, Normocephalic Pupils: Present: PERRL Extroacular Muscles: Present: EOMI Conjunctiva: Present: Normal Mouth: Present: Moist Mucous Membranes Neck: Present: Normal Range of Motion Respiratory/Chest: Present: Clear to Auscultation, Good Air Exchange. No: Respiratory Distress, Accessory Muscle Use Cardiovascular: Present: Regular Rate and Rhythm, Normal S1, S2. No: Murmurs Abdomen: No: Tenderness, Distention, Peritoneal Signs Back: Present: Normal Inspection Upper Extremity: Present: Normal Inspection, Tenderness, Neurovascularly Intact (right shoulder joint flexed, internally rotated, and abducted ), Capillary Refill < 2s. No: Cyanosis, Edema, Swelling Lower Extremity: Present: Normal Inspection. No: Edema Neurological: Present: GCS=15, CN II-XII Intact, Speech Normal Skin: Present: Warm, Dry, Normal Color. No: Rashes Psychiatric: Present: Alert, Oriented x 3, Normal Insight, Normal Concentration <Irving Uriostegui - Last Filed: 04/06/18 08:59> Vital Signs Temp Pulse Resp BP Pulse Ox 04/06/18 09:15 98.2 F 79 18 132/79 99 04/06/18 08:42 98.2 F 78 18 132/79 98 04/06/18 06:49 97.6 F 69 18 156/94 H 97 Medical Decision Making <Irving Uriostegui - Last Filed: 04/06/18 08:59> <Mary Jo Worthy - Last Filed: 04/06/18 09:20> ED Course and Treatment: 04/06/18 07:23 Assessment and Plan: Patient is a 52 year old female with a past medical history of hypertension who presents to the Emergency department for evaluation and treatment of right shoulder pain. Right Shoulder Pain bursitis vs supraspinatus strain Rule out fracture 04/06/18 07:42 - Right shoulder xray - Toradal 60 IM 04/06/18 08:57 - pain improved to 6/10 - ROM of right shoulder joint improved - patient ok for discharge to home and follow up with primary care physician (Irving Uriostegui) 04/06/18 08:32 52 year old female presents to the Emergency department for right shoulder discomfort. In agreement with resident note, which includes further HPI details. Patient was seen and evaluated with resident, came up with plan and treatment together. (Mary Jo Worthy) - RAD Interpretation Narrative RAD Interpretations (Text): R shoulder XR- No acute fx/dislocation as read by Dr. Worthy (Mary Jo Worthy) Radiology Orders: 04/06/18 07:18 SHOULDER RIGHT [RAD] Stat - Medication Orders Current Medication Orders: Discontinued Medications Ketorolac Tromethamine (Toradol) 60 mg IM STAT STA Stop: 04/06/18 07:18 Last Admin: 04/06/18 07:26 Dose: 60 mg MAR Pain Assessment Document 04/06/18 07:26 EWO (Rec: 04/06/18 07:27 EWO [id number]) Pain Reassessment Is this a pain reassessment? 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 KAUR has examined the patient and agrees with the treatment plan. - Scribe Statement The provider has reviewed the documentation as recorded by the Scribe <Mary Jo Worthy - Last Filed: 04/06/18 09:20> - Scribe Statement Sarah Jaime. All medical record entries made by the Scribe were at my direction and personally dictated by me. I have reviewed the chart and agree that the record accurately reflects my personal performance of the history, physical exam, medical decision making, and the department course for this patient. I have also personally directed, reviewed, and agree with the discharge instructions and disposition. (Mary Jo Worthy) Disposition/Present on Arrival - Present on Arrival Any Indicators Present on Arrival: No History of DVT/PE: No History of Uncontrolled Diabetes: No Urinary Catheter: No History of Decub. Ulcer: No History Surgical Site Infection Following: None - Disposition Have Diagnosis and Disposition been Completed?: Yes Disposition Time: 08:57 <Irving Uriostegui - Last Filed: 04/06/18 08:59> <Mary Jo Worthy - Last Filed: 04/06/18 09:20> - Disposition Diagnosis: Right anterior shoulder pain Disposition: HOME/ ROUTINE Condition: GOOD Discharge Instructions (ExitCare): Shoulder Pain (DC) Additional Instructions: ANNETTE HUDSON, thank you for letting us take care of you today. Your provider was Mary Jo Worthy MD and you were treated for right shoulder injury. The emergency medical care you received today was directed at your acute symptoms. If you were prescribed any medication, please fill it and take as directed. It may take several days for your symptoms to resolve. Return to the Emergency Department if your symptoms worsen, do not improve, or if you have any other problems. Please contact your doctor or call one of the physicians/clinics you have been referred to that are listed on the Patient Visit Information form that is included in your discharge packet. Bring any paperwork you were given at discharge with you along with any medications you are taking to your follow up visit. Our treatment cannot replace ongoing medical care by a primary care provider outside of the emergency department. Thank you for allowing the [facility] team to be part of your care today. If you had an X-Ray or CT scan: A Radiologist will review the ED reading if any change in treatment is needed we will contact you. If you had a blood, urine, or wound culture: It will take several days for the results, if any change in treatment is needed we will contact you. If you had an STI test: It will take 48 hours for the results. Please call after 1 week if you have not heard back. Prescriptions: Ibuprofen [Motrin Tab] 800 mg PO TID PRN 7 Days tab PRN Reason: Pain, Moderate (4-7) Referrals: Burt Martin MD [Primary Care Provider] - Follow up with primary Forms: [employer] [facility] ([place]), WORK NOTE
[2018-04-06 09:15] VITALS: BP 132/79; PULSE 79; TEMP 98.2; O2SAT 99
--- NOTE | 2018-04-06 09:24 | RAD ---
PROCEDURE: AllRadiographs of the Right Shoulder HISTORY: Right shoulder Pain. No history of recent/ related trauma provided COMPARISON: No prior. FINDINGS: BONES: Normal. No fracture. JOINTS: Normal. Glenohumeral and acromioclavicular joints preserved. No osteoarthritis. SOFT TISSUES: Normal. OTHER FINDINGS: None. IMPRESSION: No acute findings related to/accounting for the clinical presentation. [place]
== END 2018-04-06 09:15 | disposition home or self-care (01) ==
LOC: ED 06:42
DX: M25.511 Pain in right shoulder (principal)
CPT/HCPCS: 73030; 96372; 99284; J1885

== ENCOUNTER 2018-09-25 08:36 | Emergency (ER) | payer OTHER ==
[2018-09-25 08:43] VITALS: BMI 39.4
[2018-09-25] MEDS ORDERED: Sodium Chloride 0.9% 1,000 ML IV STA (09:05)
--- NOTE | 2018-09-25 09:12 | ED PDOC ---
Arrival/HPI - General Chief Complaint: GI Problem Historian: Patient - History of Present Illness Narrative History of Present Illness (Text): 09/25/18 09:04 52 y/o F w/ PMHx of hypertension (non-compliant with her BP medication) and asthma, presents to the ED for evaluation of a sudden episode of nausea, abdominal cramping and intermittent diaphoresis since this morning. Patient reports onset of symptoms at work, where she had to take a seat multiple times secondary to symptoms. Patient reports having her blood pressure taken with a measurement of 184/108 mmHg and was subsequently referred to the ED for medical evaluation. Patient informs similar symptoms in the past, which resolved spontaneously, however, states current symptoms are worse than prior. Patient denies any other associated somatic complaints. Patient denies any fevers, chills, headache, dizziness, chest pain, shortness of breath, cough, vomiting, diarrhea, back pain, neck pain, or any other complaints. Time/Duration: Prior to Arrival Symptom Onset: Sudden Symptom Course: Improving Activities at Onset: Light Context: Work Past Medical History - Provider Review Nursing Documentation Reviewed: Yes - Infectious Disease Hx of Infectious Diseases: None - Cardiac Hx Cardiac Disorders: Yes (enlarged heart) Hx Cardiac Arrhythmia: Yes Hx Hypertension: Yes Hx Peripheral Edema: Yes (ble+1) - Pulmonary Hx Asthma: Yes - Neurological Hx Neurological Disorder: No - HEENT Hx HEENT Disorder: No - Renal Hx Renal Disorder: No - Endocrine/Metabolic Hx Endocrine Disorders: No - Hematological/Oncological Hx Blood Disorders: No - Integumentary Hx Dermatological Disorder: No - Musculoskeletal/Rheumatological Hx Falls: No - Gastrointestinal Hx Gastrointestinal Disorders: No - Genitourinary/Gynecological Hx Genitourinary Disorders: No - Psychiatric Hx Psychophysiologic Disorder: No Hx Substance Use: No - Surgical History Hx Hysterectomy: Yes - Anesthesia Hx Anesthesia: Yes Hx Anesthesia Reactions: No Hx Malignant Hyperthermia: No Family/Social History - Physician Review Nursing Documentation Reviewed: Yes Family/Social History: Unknown Family HX Smoking Status: Never Smoked Hx Alcohol Use: Yes (occasional) Hx Substance Use: No Allergies/Home Meds Allergies/Adverse Reactions: Allergies amoxicillin trihydrate [From Augmentin] Allergy (Verified 09/25/18 08:45) RASH potassium clavulanate [From Augmentin] Allergy (Verified 09/25/18 08:45) RASH Review of Systems - Physician Review All systems were reviewed & negative as marked: Yes - Review of Systems Constitutional: absent: Fevers Respiratory: absent: SOB, Cough Cardiovascular: absent: Chest Pain Gastrointestinal: Abdominal Pain, Nausea. absent: Diarrhea, Vomiting Genitourinary Female: absent: Dysuria, Urine Output Changes Musculoskeletal: absent: Back Pain, Neck Pain Skin: absent: Rash Neurological: absent: Headache, Dizziness Endocrine: Diaphoresis Physical Exam Vital Signs Reviewed: Yes Vital Signs Temp Pulse Resp BP Pulse Ox 09/25/18 08:46 97.7 F 65 18 181/85 H 99 Temperature: Afebrile Blood Pressure: Hypertensive Pulse: Regular Respiratory Rate: Normal Appearance: Positive for: Well-Appearing, Non-Toxic, Comfortable Pain Distress: None Mental Status: Positive for: Alert and Oriented X 3 - Systems Exam Head: Present: Atraumatic, Normocephalic Pupils: Present: PERRL Extroacular Muscles: Present: EOMI Conjunctiva: Present: Normal Neck: Present: Normal Range of Motion Respiratory/Chest: Present: Clear to Auscultation, Good Air Exchange. No: Respiratory Distress, Accessory Muscle Use Cardiovascular: Present: Regular Rate and Rhythm, Normal S1, S2. No: Murmurs Abdomen: No: Tenderness, Distention, Peritoneal Signs Back: Present: Normal Inspection Upper Extremity: Present: Normal Inspection. No: Cyanosis, Edema Lower Extremity: Present: Normal Inspection. No: Edema Neurological: Present: GCS=15, CN II-XII Intact, Speech Normal Skin: Present: Warm, Dry, Normal Color. No: Rashes Psychiatric: Present: Alert, Oriented x 3, Normal Insight, Normal Concentration Medical Decision Making ED Course and Treatment: 09/25/18 09:20 Impression: 52 year old female presents to the Emergency department complaining of a sudden episode of nausea, abdominal cramping and diaphoresis. Differential Diagnosis included but are not limited to: Plan: -- Labs -- Chest X-ray -- Apresoline -- IV Fluids -- Urinalysis -- Reassess and disposition Prior Visits: Notes and results from previous visits were reviewed. Progress Notes: - RAD Interpretation Narrative RAD Interpretations (Text): 09/25/18 10:21 Chest X-ray reviewed by radiologist, shows: FINDINGS: LUNGS: No active pulmonary disease. PLEURA: No significant pleural effusion identified, no pneumothorax apparent. CARDIOVASCULAR: No aortic atherosclerotic calcification present. Normal cardiac size. No pulmonary vascular congestion. OSSEOUS STRUCTURES: No significant abnormalities. VISUALIZED UPPER ABDOMEN: Normal. OTHER FINDINGS: None. IMPRESSION: No interval acute cardiopulmonary disease appreciated. 09/25/18 12:44 CT of head reviewed by radiologist, shows: FINDINGS: HEMORRHAGE: No intracranial hemorrhage. BRAIN: No mass effect or edema. No atrophy or chronic microvascular ischemic changes. VENTRICLES: Unremarkable. No hydrocephalus. CALVARIUM: Unremarkable. PARANASAL SINUSES: Unremarkable as visualized. No significant inflammatory changes. MASTOID AIR CELLS: Unremarkable as visualized. No inflammatory changes. OTHER FINDINGS: None. IMPRESSION: No acute findings Radiology Orders: 09/25/18 09:04 CHEST PORTABLE [RAD] Stat Food Packer: Radiologist - Medication Orders Current Medication Orders: Sodium Chloride (Sodium Chloride 0.9%) 1,000 mls @ 999 mls/hr IV .Q1H1M STA Stop: 09/25/18 10:05 - Scribe Statement The provider has reviewed the documentation as recorded by the Scribe Sarah Jaime. All medical record entries made by the Scribe were at my direction and personally dictated by me. I have reviewed the chart and agree that the record accurately reflects my personal performance of the history, physical exam, m edical decision making, and the department course for this patient. I have also personally directed, reviewed, and agree with the discharge instructions and disposition. Disposition/Present on Arrival - Present on Arrival Any Indicators Present on Arrival: No History of DVT/PE: No History of Uncontrolled Diabetes: No Urinary Catheter: No History of Decub. Ulcer: No History Surgical Site Infection Following: None - Disposition Have Diagnosis and Disposition been Completed?: Yes Diagnosis: Anxiety, Lightheadedness Disposition: HOME/ ROUTINE Disposition Time: 12:30 Patient Plan: Discharge Patient Problems: Current Active Problems Problem Status Onset Anxiety Acute Lightheadedness Acute Condition: IMPROVED Discharge Instructions (ExitCare): Vertigo (a Type of Dizziness) (DC), Anxiety, Adult (DC) Print Language: YEMENI Additional Instructions: All medical record entries made by the Scribe were at my direction and per sonally dictated by me. I have reviewed the chart and agree that the record accurately reflects my personal performance of the history, physical exam, medical decision making, and the department course for this patient. I have also personally directed, reviewed, and agree with the discharge instructions and disposition. Prescriptions: Ondansetron ODT [Zofran ODT] 4 mg PO Q6H #6 odt Referrals: Burt Martin MD [Primary Care Provider] - Follow up with primary Forms: [facility] ([place]), WORK NOTE
[2018-09-25 10:10] LABS: BASO # 0.03 K/mm3 (0.0-2.0); BASO % 0.3 % (0.0-3.0); EOS # 0.1 (0.0-0.7); EOS % 1.1 % (1.5-5.0); GRAN # 8.76 (1.4-6.5); GRAN % 79.3 % (50.0-68.0); HEMOGLOBIN 13.5 g/dL (12.0-16.0); LYMPH # 1.5 (1.2-3.4); LYMPH % 13.9 % (22.0-35.0); MEAN CELL VOLUME 80.8 fl (80.0-105.0); MEAN CORPUSCULAR HEMOGLOBIN 26.2 pg (25.0-35.0); MEAN CORPUSCULAR HGB CONC 32.5 g/dl (31.0-37.0); MEAN PLATELET VOLUME 9.6 fl (7.0-11.0); MONO # 0.6 (0.1-0.6); MONO % 5.4 % (1.0-6.0); RBC 5.15 10^6/uL (3.5-6.1); RED CELL DISTRIBUTION WIDTH 14.2 % (11.5-14.5)
[2018-09-25 10:11] LABS: URINE BILIRUBIN NEGATIVE (NEGATIVE); URINE BLOOD NEGATIVE (NEGATIVE); URINE GLUCOSE (UA) NEGATIVE (NEGATIVE); URINE LEUKOCYTE ESTERASE NEGATIVE Leu/uL (NEGATIVE); URINE PROTEIN NEGATIVE mg/dL (<30 mg/dL); URINE UROBILINOGEN 0.2 E.U./dL (<1 E.U./dL)
[2018-09-25 10:12] LABS: URINE APPEARANCE CLEAR (CLEAR); URINE COLOR YELLOW (YELLOW)
--- NOTE | 2018-09-25 10:12 | RAD ---
Date of service: 09/25/2018 HISTORY: sob COMPARISON: Portable chest 10/09/2017. FINDINGS: LUNGS: No active pulmonary disease. PLEURA: No significant pleural effusion identified, no pneumothorax apparent. CARDIOVASCULAR: No aortic atherosclerotic calcification present. Normal cardiac size. No pulmonary vascular congestion. OSSEOUS STRUCTURES: No significant abnormalities. VISUALIZED UPPER ABDOMEN: Normal. OTHER FINDINGS: None. IMPRESSION: No interval acute cardiopulmonary disease appreciated.
[2018-09-25 10:22] LABS: ALT/SGPT 28 U/L (7-56); AST/SGOT 24 U/L (14-36); BLOOD UREA NITROGEN 16 mg/dL (7-21); CALCIUM 9.6 mg/dL (8.4-10.5); GFR NON-AFRICAN AMERICAN > 60
[2018-09-25 10:30] LABS: TROPONIN I < 0.01 ng/mL
[2018-09-25 10:55] VITALS: O2SAT 98
[2018-09-25 11:40] LABS: ALB/GLOB RATIO 1.1 (1.1-1.8); ALBUMIN 4.3 g/dL (3.0-4.8)
--- NOTE | 2018-09-25 12:14 | CT ---
Date of service: 09/25/2018 PROCEDURE: CT HEAD WITHOUT CONTRAST. HISTORY: lightheadedness COMPARISON: None available. TECHNIQUE: Axial computed tomography images were obtained through the head/brain without intravenous contrast. Radiation dose: Total exam DLP = 927.17 mGy-cm. This CT exam was performed using one or more of the following dose reduction techniques: Automated exposure control, adjustment of the mA and/or kV according to patient size, and/or use of iterative reconstruction technique. FINDINGS: HEMORRHAGE: No intracranial hemorrhage. BRAIN: No mass effect or edema. No atrophy or chronic microvascular ischemic changes. VENTRICLES: Unremarkable. No hydrocephalus. CALVARIUM: Unremarkable. PARANASAL SINUSES: Unremarkable as visualized. No significant inflammatory changes. MASTOID AIR CELLS: Unremarkable as visualized. No inflammatory changes. OTHER FINDINGS: None. IMPRESSION: No acute findings
--- NOTE | 2018-09-25 12:18 | CT ---
Date of service: 09/25/2018 PROCEDURE: CT Chest with contrast (Pulmonary Angiogram) HISTORY: elevated D-dimer COMPARISON: 06/20/2017 TECHNIQUE: Axial computed tomography images were obtained of the chest in the pulmonary arterial phase of enhancement. Coronal and sagittal reformatted images were created and reviewed. Intravenous contrast dose: 100 cc of Omni 300 Radiation dose: Total exam DLP = 495.45 mGy-cm. This CT exam was performed using one or more of the following dose reduction techniques: Automated exposure control, adjustment of the mA and/or kV according to patient size, and/or use of iterative reconstruction technique. FINDINGS: PULMONARY ARTERIES: Unremarkable. No pulmonary embolism. AORTA: No acute findings. No thoracic aortic aneurysm. No aortic atherosclerotic calcification or mural plaque present. LUNGS: Unremarkable. No nodule, mass or pulmonary consolidation. PLEURAL SPACES: Unremarkable. No effusion or pneumothorax. HEART: Unremarkable. No cardiomegaly. No significant pericardial effusion. LYMPH NODES: No lymphadenopathy. BONES, CHEST WALL: Unremarkable. No fracture or destructive lesion OTHER FINDINGS: Unremarkable. IMPRESSION: Unremarkable CT pulmonary angiogram. No pulmonary embolus.
[2018-09-25 13:01] VITALS: BP 145/68; PULSE 64; RESP 18
[2018-09-25 13:14] VITALS: TEMP 98.7
--- NOTE | 2018-09-26 16:32 | CARD ---
APPROVED REPORT Date of service: 09/25/2018 EKG Measurement Heart [id number] <Conclusion> Normal sinus rhythm Moderate voltage criteria for LVH, may be normal variant Borderline ECG
== END 2018-09-25 13:12 | disposition home or self-care (01) ==
LOC: ED 08:36
DX: F41.9 Anxiety disorder, unspecified (principal); R42 Dizziness and giddiness; I10 Essential (primary) hypertension; Z91.14 Patient's other noncompliance with medication regimen
CPT/HCPCS: 70450; 71045; 71275; 80053; 81003; 83735; 84484; 85025; 85378; 93005; 96374; 99284; J0360; J7030; Q9967

== ENCOUNTER 2019-02-04 13:16 | Emergency (ER) | payer OTHER ==
[2019-02-04 13:18] VITALS: BMI 40.7
[2019-02-04 13:25] VITALS: RESP 18; TEMP 98.7; O2SAT 98
--- NOTE | 2019-02-04 13:56 | ED PDOC ---
Arrival/HPI - General Chief Complaint: Hip Pain Time Seen by Provider: 02/04/19 13:30 Historian: Patient - History of Present Illness Narrative History of Present Illness (Text): 02/04/19 14:00 53 year old F with pmh of hypertension presents with chief complaint of left hip pain proir to arrival. Patient report pulling a muscle on her left side while reaching down for a trash can. Patient was ambulatory on arrival. Patient denies any falls or trauma to hip. Patient endorses taking tylenol for pain. Patient denies any fevers, chills, headache, dizziness, chest pain, shortness of breath, dyspnea on exertion, cough, diaphoresis, abdominal pain, nausea, vomiting, diarrhea, back pain, neck pain, or any other complaint. Time/Duration: Prior to Arrival Symptom Onset: Sudden Symptom Course: Unchanged Activities at Onset: Light Context: Home Past Medical History - Provider Review Nursing Documentation Reviewed: Yes - Infectious Disease Hx of Infectious Diseases: None - Reproductive Menopause: Yes - Cardiac Hx Cardiac Disorders: Yes (enlarged heart) Hx Cardiac Arrhythmia: Yes Hx Hypertension: Yes Hx Peripheral Edema: Yes (ble+1) - Pulmonary Hx Asthma: Yes - Neurological Hx Neurological Disorder: No - HEENT Hx HEENT Disorder: No - Renal Hx Renal Disorder: No - Endocrine/Metabolic Hx Endocrine Disorders: No - Hematological/Oncological Hx Blood Disorders: No - Integumentary Hx Dermatological Disorder: No - Musculoskeletal/Rheumatological Hx Falls: No - Gastrointestinal Hx Gastrointestinal Disorders: No - Genitourinary/Gynecological Hx Genitourinary Disorders: No - Psychiatric Hx Psychophysiologic Disorder: No Hx Substance Use: No - Surgical History Hx Hysterectomy: Yes - Anesthesia Hx Anesthesia: Yes Hx Anesthesia Reactions: No Hx Malignant Hyperthermia: No Family/Social History - Physician Review Nursing Documentation Reviewed: Yes Family/Social History: Unknown Family HX Smoking Status: Never Smoked Hx Alcohol Use: Yes (occasional) Hx Substance Use: No Allergies/Home Meds Allergies/Adverse Reactions: Allergies amoxicillin trihydrate [From Augmentin] Allergy (Verified 02/04/19 13:21) RASH potassium clavulanate [From Augmentin] Allergy (Verified 02/04/19 13:21) RASH Review of Systems - Physician Review All systems were reviewed & negative as marked: Yes - Review of Systems Constitutional: absent: Fevers ENT: absent: Rhinorrhea Respiratory: absent: SOB Cardiovascular: absent: Chest Pain Gastrointestinal: absent: Abdominal Pain, Diarrhea, Nausea, Vomiting Genitourinary Female: absent: Dysuria Musculoskeletal: Myalgias (left hip area). absent: Arthralgias, Back Pain, Neck Pain, Joint Swelling Skin: absent: Rash Neurological: absent: Headache, Dizziness Physical Exam Vital Signs Reviewed: Yes Vital Signs Temp Pulse Resp BP Pulse Ox 02/04/19 13:25 98.7 F 72 18 170/90 H 98 Temperature: Afebrile Blood Pressure: Hypertensive Pulse: Regular Respiratory Rate: Normal Appearance: Positive for: Well-Appearing, Non-Toxic, Comfortable Pain Distress: Mild Mental Status: Positive for: Alert and Oriented X 3 - Systems Exam Head: Present: Atraumatic, Normocephalic Pupils: Present: PERRL Extroacular Muscles: Present: EOMI Conjunctiva: Present: Normal Mouth: Present: Moist Mucous Membranes Neck: Present: Normal Range of Motion Respiratory/Chest: Present: Clear to Auscultation, Good Air Exchange. No: Respiratory Distress, Accessory Muscle Use Cardiovascular: Present: Regular Rate and Rhythm, Normal S1, S2. No: Murmurs Abdomen: No: Tenderness, Distention, Peritoneal Signs Back: Present: Normal Inspection Upper Extremity: Present: Normal Inspection. No: Cyanosis, Edema Lower Extremity: Present: NORMAL PULSES, Normal ROM, Tenderness (Lateral hip tenderness), Neurovascularly Intact, Capillary Refill < 2 s, Other (No leg shortening. Good dorsal flex and plantar flex). No: Edema, Cyanosis, Swelling, Erythema, Temperature Abnormalties Neurological: Present: GCS=15, CN II-XII Intact, Speech Normal Skin: Present: Warm, Dry, Normal Color. No: Rashes Psychiatric: Present: Alert, Oriented x 3, Normal Insight, Normal Concentration Medical Decision Making ED Course and Treatment: 02/04/19 14:00 Impression: 53 year old F presents with chief complaint of left hip pain proir to arrival. Patient report pulling a muscle on her left side while reaching down for a trash can. Patient was ambulatory on arrival. Patient denies any falls or trauma to hip. Patient endorses taking tylenol. Plan: -- Reassess and disposition Prior Visits: Notes and results from previous visits were reviewed. Progress Notes: - Scribe Statement The provider has reviewed the documentation as recorded by the Jyoti Nayak All medical record entries made by the Shondaibe were at my direction and personally dictated by me. I have reviewed the chart and agree that the record accurately reflects my personal performance of the history, physical exam, medical decision making, and the department course for this patient. I have also personally directed, reviewed, and agree with the discharge instructions and disposition. Disposition/Present on Arrival - Present on Arrival Any Indicators Present on Arrival: No History of DVT/PE: No History of Uncontrolled Diabetes: No Urinary Catheter: No History of Decub. Ulcer: No History Surgical Site Infection Following: None - Disposition Have Diagnosis and Disposition been Completed?: Yes Diagnosis: Muscle strain of left hip Disposition: HOME/ ROUTINE Disposition Time: 13:54 Patient Plan: Discharge Condition: STABLE Discharge Instructions (ExitCare): Lower Extremity Muscle Strain (DC) Additional Instructions: ANNETTE HUDSON, thank you for letting us take care of you today. Your provider was Cande Diop MD and you were treated for hip pain. The emergency medical care you received today was directed at your acute symptoms. If you were prescribed any medication, please fill it and take as directed. It may take several days for your symptoms to resolve. Return to the Emergency Department if your symptoms worsen, do not improve, or if you have any other problems. Please contact your doctor for a follow up appointment in 1-2 days. Bring any paperwork you were given at discharge with you along with any medications you are taking to your follow up visit. Our treatment cannot replace ongoing medical care by a primary care provider outside of the emergency department. Thank you for allowing the [facility] team to be part of your care today. Prescriptions: Naproxen [Naprosyn] 500 mg PO BID PRN #30 tablet PRN Reason: Pain, Moderate (4-7) Referrals: Burt Martin MD [Medical Doctor] - Follow up with primary Forms: [employer] ([place]), WORK NOTE
[2019-02-04 14:09] VITALS: BP 155/86; PULSE 85
== END 2019-02-04 14:08 | disposition home or self-care (01) ==
LOC: ED 13:16
DX: S76.012A Strain of muscle, fascia and tendon of left hip, initial encounter (principal); X50.0XXA Overexertion from strenuous movement or load, initial encounter